=== PATIENT | female | born 1950 | race Caucasian/White ===

== ENCOUNTER 2018-02-02 14:08 | Outpatient (REF) | payer MEDICARE, OTHER, SELFPAY ==
[2018-02-03 12:47] LABS: Helicobacter pylori Ag, Feces Positive (NEGAT)
== END 2018-02-02 14:28 ==
LOC: LBN 14:08
PROVIDERS: PCP Nurse Practitioner; Visit Provider Nurse Practitioner
DX: R11.2 Nausea with vomiting, unspecified (principal)
CPT/HCPCS: 87338

== ENCOUNTER 2018-02-03 11:05 | Outpatient (CLI) | payer MEDICARE, OTHER, SELFPAY ==
[2018-02-03 11:53] LABS: HGB 13.8 g/dL (12.0-15.5); Mean Corp. HGB Concentration 33.7 g/dL (32.0-36.0); Mean Corpuscular Hemoglobin 29.8 pg (27.0-33.0); Mean Corpuscular Volume 88.6 fL (80-95); Mean Platelet Volume 8.9 fL (8.0-11.0); Platelet Count 302 x1000/uL (130-400); RBC 4.63 m/cumm (4.00-5.20); RBC Distribution Width 13.1 % (11.7-14.6); White Blood Cell Count 5.74 k/cumm (4.4-10.8)
[2018-02-03 13:10] LABS: ALT 39 U/L (12-78); AST 23 U/L (15-37); Albumin 3.8 g/dL (3.4-5.0); Alkaline Phosphatase 85 U/L (46-116); Anion Gap 9.1 mmol/L (3-11); BUN 15 mg/dL (7-18); Bilirubin, Total 0.4 mg/dL (0.2-1.0); CO2 25.9 mmol/L (21.0-32.0); CREATININE 0.74 mg/dL (0.55-1.02); Calcium 9.7 mg/dL (8.5-10.1); Chloride 102 mmol/L (98-107); Glucose 94 mg/dL (70-100); Potassium 3.9 mmol/L (3.5-5.1); Sodium 137 mmol/L (136-145); Total Protein 6.7 g/dL (6.4-8.2)
== END 2018-02-03 11:25 ==
PROVIDERS: PCP Nurse Practitioner; Visit Provider Nurse Practitioner
DX: R11.2 Nausea with vomiting, unspecified (principal)
CPT/HCPCS: 36415; 80053; 85027

== ENCOUNTER 2018-06-04 07:35 | Outpatient (CLI) | payer MEDICARE, OTHER, SELFPAY ==
[2018-06-04 10:05] LABS: Cholesterol 184 mg/dL (50-200); HDL Cholesterol 62 mg/dL (40-60); LDL CHOLESTEROL 102 mg/dL (<100); Triglyceride 97 mg/dL (30-150)
[2018-06-09 15:25] LABS: Helicobacter pylori Ag, Feces Negative (NEGAT)
== END 2018-06-04 07:55 ==
LOC: LBO 08:49 → LBN 14:06
PROVIDERS: Nurse Practitioner Family; PCP Nurse Practitioner; Visit Provider Nurse Practitioner
DX: E78.5 Hyperlipidemia, unspecified (principal); A04.8 Other specified bacterial intestinal infections
CPT/HCPCS: 36415; 80053; 80061; 83721; 87338; 83735; 85025

== ENCOUNTER 2019-04-29 03:11 | Outpatient (CLI) | payer MEDICARE, OTHER, SELFPAY ==
[2019-04-29 08:49] LABS: ALT 38 U/L (14-59); AST 22 U/L (15-37); Albumin 3.6 g/dL (3.4-5.0); Alkaline Phosphatase 77 U/L (46-116); Anion Gap 8.9 mmol/L (3-11); BUN 12 mg/dL (7-18); Bilirubin, Total 0.5 mg/dL (0.2-1.0); CO2 29.1 mmol/L (21.0-32.0); CREATININE 0.76 mg/dL (0.55-1.02); Calcium 9.8 mg/dL (8.5-10.1); Calculated LDL 103 mg/dL (<100); Chloride 103 mmol/L (98-107); Cholesterol 170 mg/dL (<200); Glucose 99 mg/dL (74-106); HDL Cholesterol 58 mg/dL (40-60); Potassium 3.9 mmol/L (3.5-5.1); Sodium 141 mmol/L (136-145); Total Protein 6.6 g/dL (6.4-8.2); Triglyceride 46 mg/dL (<150)
== END 2019-04-29 03:31 ==
PROVIDERS: PCP Nurse Practitioner; Visit Provider Nurse Practitioner
DX: E78.5 Hyperlipidemia, unspecified (principal); I10 Essential (primary) hypertension
CPT/HCPCS: 36415; 80053; 80061

== ENCOUNTER 2019-04-29 11:49 | Outpatient (REF) | payer MEDICARE, OTHER, SELFPAY ==
[2019-04-29 14:01] LABS: Bilirubin Negative (Negative); Blood Negative (Negative); Clarity Sl Cloudy (Clear); Glucose Negative (Negative); Ketones Negative (Negative); Leukocyte Esterase Small (Negative); Nitrite Positive (Negative); Specific Gravity 1.015 (1.005-1.025); Urobilinogen 0.2 EU/dL (Up TO 0.2)
[2019-04-29 14:11] LABS: Bacteria Many HPF (Negative); C & S Indicated? C&S Done As Ordered; Casts Negative LPF (Negative); Crystals Negative HPF (Negative); Epithelial Cells Few HPF (Negative); Mucus Negative (Negative); Other Cells Few Transitional (Negative); RBC 0-2 HPF (0-2); WBC 20-50 HPF (0-5)
== END 2019-04-29 12:09 ==
LOC: LBN 11:49
PROVIDERS: PCP Nurse Practitioner; Visit Provider Nurse Practitioner
DX: R82.90 Unspecified abnormal findings in urine (principal)
CPT/HCPCS: 87077; 81003; 81015; 87086; 87186

== ENCOUNTER 2019-07-09 12:15 | Outpatient (REF) | payer MEDICARE, OTHER, SELFPAY ==
[2019-07-09 15:57] LABS: Bilirubin Negative (Negative); Blood Small (Negative); Clarity Cloudy (Clear); Glucose Negative (Negative); Ketones Negative (Negative); Leukocyte Esterase Moderate (Negative); Nitrite Negative (Negative); Specific Gravity 1.015 (1.005-1.025); Urobilinogen 0.2 EU/dL (Up TO 0.2); pH 6.5 (5-8)
[2019-07-09 16:21] LABS: Epithelial Cells Rare HPF (Negative); RBC 0-2 HPF (0-2); WBC >50 HPF (0-5)
[2019-07-09 16:22] LABS: Bacteria Moderate HPF (Negative); C & S Indicated? Yes; Casts Negative LPF (Negative); Crystals Negative HPF (Negative); Mucus Negative (Negative)
== END 2019-07-09 12:35 ==
LOC: LBN 12:15
PROVIDERS: PCP Nurse Practitioner; Visit Provider Family Medicine
DX: R30.0 Dysuria (principal)
CPT/HCPCS: 87077; 81003; 81015; 87086

== ENCOUNTER 2019-07-16 02:00 | Outpatient (CLI) | payer MEDICARE, OTHER, SELFPAY ==
[2019-07-16 17:03] LABS: ESR 6 mm/hr (0-30)
== END 2019-07-16 02:20 ==
PROVIDERS: PCP Nurse Practitioner; Visit Provider Family Medicine
DX: R51 Headache (principal)
CPT/HCPCS: 36415; 85652

== ENCOUNTER → 2019-08-16 13:07 | Outpatient (BNVA) | payer MEDICARE, OTHER, SELFPAY | PROVIDERS: PCP Nurse Practitioner; Referring Provider Nurse Practitioner; Visit Provider Nurse Practitioner Adult Health | DX: R51 Headache (principal); I10 Essential (primary) hypertension | CPT/HCPCS: 99204; 99215 ==

== ENCOUNTER 2019-08-20 02:30 | Outpatient (CLI) | payer MEDICARE, OTHER, SELFPAY ==
--- NOTE | 2019-08-20 08:30 | DI.MRI_ITS ---
EXAM: MR BRAIN WO CLINICAL HISTORY: new daily headaches,R51. TECHNIQUE: Multiplanar multisequence MRI was performed. COMPARISON: No exams were available for comparison FINDINGS: MR examination of brain was performed according to the usual protocol. There is moderate generalized cerebral atrophy. There are multiple areas of abnormal signal in periventricular white matter and a lso in the elsa sparing the corpus callosum, the findings are consistent with microvascular ischemic changes. Diffusion-weighted imaging shows no evidence subacute or acute infarction. Susceptibility weighted imaging shows no evidence of intracranial hemorrhage. There is normal flow void in the eqntot-pz-Fxxllu vasculature. The orbital and temporal bone structu res appear intact as does the pituitary. IMPRESSION: No evidence of acute intracranial process. Diffuse white matter signal changes noted as described ab christinae. DATA REPOSITORY:
== END 2019-08-20 02:50 ==
PROVIDERS: PCP Nurse Practitioner; Visit Provider Nurse Practitioner Adult Health
DX: R51 Headache (principal); G31.9 Degenerative disease of nervous system, unspecified; R90.82 White matter disease, unspecified
CPT/HCPCS: 70551

== ENCOUNTER → 2019-09-27 08:47 | Outpatient (BNVA) | payer MEDICARE, OTHER, SELFPAY | PROVIDERS: PCP Nurse Practitioner; Referring Provider Nurse Practitioner; Visit Provider Nurse Practitioner Adult Health | DX: G44.52 New daily persistent headache (NDPH) (principal); I10 Essential (primary) hypertension | CPT/HCPCS: 99213 ==

== ENCOUNTER 2019-10-20 03:10 | Outpatient (CLI) | payer MEDICARE, OTHER, SELFPAY ==
--- NOTE | 2019-10-20 09:06 | DI.MAMMO_ITS ---
EXAM: MAMMO SCREENING CLINICAL HISTORY: screening,Z12.39 TECHNIQUE: Mammograms were interpreted according to the usual protocol including computer analysis w [employer] CAD system, tomosynthesis and C-view imaging. COMPARISON: FINDINGS: Breasts are of moderate density with fairly symmetrical distribution of fibroglandular tissue. No do minant mass or clumped microcalcification is identified in either breast. The current examination is compared with previous studies including April 2017 and there has been no gross interval change i n appearance in comparison with previous examinations. IMPRESSION: No specific evidence of malignancy at this time. Routine screening examinations are suggested at yea rly intervals in this age group according to the ACS ACR guidelines. BI-RADS Cat 1 - Negative Breast Density - Category B - Scattered areas of fibroglandular density
== END 2019-10-20 03:30 ==
PROVIDERS: PCP Nurse Practitioner; Visit Provider Nurse Practitioner
DX: Z12.31 Encounter for screening mammogram for malignant neoplasm of breast (principal); R92.2 Inconclusive mammogram
CPT/HCPCS: 77063; 77067

== ENCOUNTER 2019-10-28 10:55 | Outpatient (REF) | payer MEDICARE, OTHER, SELFPAY ==
[2019-10-29 11:35] LABS: Campylobacter PCR Negative (Negative); Salmonella PCR Negative (Negative); Shiga Toxin PCR Negative (Negative); Shigella/Enteroinvasive Ecoli Negative (Negative)
== END 2019-10-28 11:15 ==
LOC: LBN 10:55
PROVIDERS: PCP Nurse Practitioner; Visit Provider Nurse Practitioner
DX: R19.7 Diarrhea, unspecified (principal)
CPT/HCPCS: 87505

== ENCOUNTER 2020-05-17 01:05 | Outpatient (CLI) | payer MEDICARE, OTHER, SELFPAY ==
--- NOTE | 2020-05-17 08:15 | DI.RAD_ITS ---
EXAM: XR RIBS BI INCLUDE CHEST CLINICAL HISTORY: ? rib fx. Fell multiple times skiing,RT RIB PAIN, R07.81,R07.1,V00.321A TECHNIQUE: 2D digital imaging was performed. COMPARISON: CR LEFT RIBS TO INCLUDE CXR from 05/07/2016 FINDINGS: MEDIASTINUM: Normal. HEART: Normal. PULMONARY VASCULATURE: Normal. LUNGS: Clear. PLEURAL SPACE: No pleural effusion or pneumothorax. BONE:Normal. BILATERAL RIBS: Normal. No acute or healing rib fractures. OTHER FINDINGS:Normal. IMPRESSION: 1. No acute pulmonary findings. 2. No acute or healing rib fractures. DATA REPOSITORY: RADIATION DOSE DELIVERED:
== END 2020-05-17 01:25 ==
PROVIDERS: PCP Nurse Practitioner; Visit Provider Nurse Practitioner
DX: R07.1 Chest pain on breathing (principal); R07.81 Pleurodynia; V00.321A Fall from snow-skis, initial encounter
CPT/HCPCS: 71046; 71110

== ENCOUNTER 2020-11-14 03:38 | Outpatient (CLI) | payer MEDICARE, OTHER, SELFPAY ==
[2020-11-14 08:07] LABS: HCT 45.6 % (36.0-46.0); HGB 14.7 g/dL (11.2-15.7); MCH 27.9 pg (27.0-33.0); MCHC 32.2 % (32.0-36.0); MCV 86.7 fL (80-95); MPV 8.3 fL (8.0-11.0); Platelet Count 307 10^3/uL (130-400); RBC 5.26 10^6/uL (3.93-5.22); RDW 13.2 % (11.7-14.6)
[2020-11-14 09:41] LABS: ALT 35 U/L (14-59); AST 21 U/L (15-37); Albumin 3.9 g/dL (3.4-5.0); Alkaline Phosphatase 92 U/L (46-116); Anion Gap 8.6 mmol/L (3-11); BUN 12 mg/dL (7-18); Bilirubin, Total 0.4 mg/dL (0.2-1.0); CO2 29.4 mmol/L (21.0-32.0); CREATININE 0.7 mg/dL (0.55-1.02); Calcium 10.2 mg/dL (8.5-10.1); Calculated LDL 110 mg/dL (<100); Chloride 104 mmol/L (98-107); Cholesterol 189 mg/dL (<200); Glucose 96 mg/dL (74-106); HDL Cholesterol 62 mg/dL (40-60); Potassium 4.4 mmol/L (3.5-5.1); Sodium 142 mmol/L (136-145); Triglyceride 87 mg/dL (<150)
== END 2020-11-14 03:39 | disposition home or self-care (01) ==
LOC: LBO 03:38
PROVIDERS: PCP Nurse Practitioner; Visit Provider Nurse Practitioner
DX: I10 Essential (primary) hypertension (principal); E78.5 Hyperlipidemia, unspecified; F32.9 Major depressive disorder, single episode, unspecified
CPT/HCPCS: 36415; 80053; 80061; 85027

== ENCOUNTER 2020-11-15 01:48 | Outpatient (CLI) | payer MEDICARE, OTHER, SELFPAY ==
--- NOTE | 2020-11-15 06:45 | DI.RAD_ITS ---
Exam(s) XR HIP LT COMPLETE AP PELVIS EXAM: XR HIP LT COMPLETE AP PELVIS CLINICAL HISTORY: pain s/p fall,M25.552. TECHNIQUE: 2D digital imaging was performed. COMPARISON: No exams were available for comparison FINDINGS: BONES: No acute fracture is present. No bony destructive lesion is seen. JOINTS: No dislocation present. There are degenerative changes seen in the lumbosacral spine. SOFT TISSUE: Normal. IMPRESSION: No acute fracture or dislocation. DATA REPOSITORY: RADIATION DOSE DELIVERED:
== END 2020-11-15 02:08 ==
PROVIDERS: PCP Nurse Practitioner; Visit Provider Nurse Practitioner
DX: M25.552 Pain in left hip (principal)
CPT/HCPCS: 73502

== ENCOUNTER 2021-01-15 01:11 | Outpatient (CLI) | payer MEDICARE, OTHER, SELFPAY ==
--- NOTE | 2021-01-15 06:15 | DI.MAMMO_ITS ---
Exam(s) MAMMO SCREENING EXAM: MAMMO SCREENING CLINICAL HISTORY: screening.Z. TECHNIQUE: Bilateral full field digital CC and MLO mammographic images were obtained with 3D tomosyn thesis and utilizing computer aided detection (CAD). COMPARISON: Prior mammograms dating back to 2014, the most recent being October 2019. FINDINGS: There are no new spiculated masses nor malignant appearing microcalcification groups. Small benign-appearing microcalcification group located lateral of center in the left breast is again noted. There is no significant architectural distortion nor skin thickening-retraction. IMPRESSION: No radiographic evidence of malignancy. Stable benign findings. BI-RADS Category 2 - Benign Findings Breast Density - Category B - Scattered areas of fibroglandular density Breast density Category C or D implies that the patient has dense breast tissue. Dense breast tissue can make it harder to find cancer on a mammogram. Dense breast tissue is also associated with an incr eased risk of breast cancer. This information about the result of the mammogram report was provided to the patient to raise their awareness. Use this report when you speak with the patient about their risks for breast cancer, which includes their family history. At that time, you may recommend additional screening tests (Ultrasoun d or MRI) as these tests may add significant information. A negative radiographic report should not delay biopsy if a dominant or clinically suspicious mass is present. Up to ten percent of cancers are not identified on mammography. A negative report may reinforce clinical impression. Adenosis and dense breasts may obscure an underlying neoplasm. False positive reports average 6 to 10%. Patient will receive a letter notifying them of these results.
== END 2021-01-15 01:31 ==
PROVIDERS: PCP Nurse Practitioner; Visit Provider Nurse Practitioner
DX: Z12.31 Encounter for screening mammogram for malignant neoplasm of breast (principal); R92.0 Mammographic microcalcification found on diagnostic imaging of breast
CPT/HCPCS: 77063; 77067

== ENCOUNTER 2021-06-26 01:55 | Outpatient (CLI) | payer MEDICARE, OTHER, SELFPAY ==
[2021-06-26] MEDS: Breeza Beverage 473 ML BTL 950 ML PO (09:15)
[2021-06-26] MEDS: Omnipaque 350 MG/ML 50 ML BTL IJ (09:16)
[2021-06-26 09:17] LABS: Estimated GFR 54.97 (mL/min/1.73m2)
[2021-06-26] MEDS: Omnipaque 350 MG/ML 100 ML BTL IJ (10:28)
--- NOTE | 2021-06-26 10:30 | DI.CT_ITS ---
Exam(s) CT ABDOMEN PELVIS W EXAM: CT ABDOMEN PELVIS W CLINICAL HISTORY: pain, explosive diarrhea. About a year, R10.9, R19.7 TECHNIQUE: Imaging Protocol: Axial computed tomography images with coronal and sagittal reformatted images were created and reviewed CONTRAST MATERIAL: Intravenous: Omnipaque 350 Contrast volume:100 mL Oral: Yes COMPARISON: No exams were available for comparison FINDINGS: ABDOMEN: Lung Bases: Small hiatal hernia. Liver: Normal density. There are several tiny hypodensities scattered throughout the liver. They are too small for further characterization but likely reflect small cysts. Portal, Superior Mesenteric, and Splenic Veins: Unremarkable. Gallbladder and Biliary Tract: Status post cholecystectomy. No significant biliary ductal dilatation . Pancreas: Normal density, no abnormal calcifications or inflammatory process. Spleen: Normal. Adrenals: No masses seen. Kidneys: Normal size, contour and axis. No radiodense stones or obstructive uropathy. There are tiny hypodensities in the kidneys. They are too small for further characterization but likely reflect sma ll cysts. Abdominal Aorta: Abdominal portion non-dilated. Atherosclerosis. There is a vertical hypodense wall along the posterior aspect of the aorta at the level of the hiatus. The wall shows some calcificatio n. The section at outlined by this wall is continuous with the lumen of the abdominal aorta and may represent a prior dissection. Bowel: No obstruction or bowel wall thickening. No evidence of appendicitis. There is a moderate elvira unt of stool throughout the colon. There are few scattered diverticula but no evidence of acute dive rticulitis. Peritoneal Cavity: No ascites, collection or mesenteric inflammatory response. No free air. Lymph Nodes: Within normal limits. Bones: Within normal limits for the patient's age. There is grade 1 pseudo spondylolisthesis of L5 o n S1. No spondylolysis. Soft Tissues: Unremarkable. PELVIS: Bladder: Symmetric distention, no gross wall thickening. Reproductive Organs: There is a 4.9 x 7.3 cm right adnexal cyst. It appears to arise from the right ovary. The left ovary is unremarkable as is the uterus. Lymph Nodes: Within normal limits. Bones: Within normal limits for the patient's age. IMPRESSION: 1. 4.9 x 7.3 cm right adnexal cyst which appears to arise from the right ovary. Ultrasound and/or MR I is recommended for further evaluation in this presumed postmenopausal patient. 2. 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 3. Status post cholecystectomy. 4. Colonic diverticulosis, but no evidence of acute diverticulitis. 5. Moderate amount of retained stool throughout the colon. RADIATION DOSE DELIVERED: 831mGy.cm Total DLP DATA REPOSITORY: All CT scans at this facility are submitted to the National Radiology Data Registry (NRDR) Dose Index Registry (DIR) with the [employer] (ACR). RADIATION OPTIMIZATION: All CT scans at this facility use at least one of these dose optimization te chniques: automated exposure control; mA and/or kV adjustment per patient size (includes targeted exa ms where dose is matched to clinical indication); or iterative reconstruction.
== END 2021-06-26 02:15 ==
PROVIDERS: PCP Nurse Practitioner; Visit Provider Nurse Practitioner
DX: Z01.812 Encounter for preprocedural laboratory examination; R10.9 Unspecified abdominal pain; R19.7 Diarrhea, unspecified; K44.9 Diaphragmatic hernia without obstruction or gangrene; K76.89 Other specified diseases of liver; Z90.49 Acquired absence of other specified parts of digestive tract; N28.1 Cyst of kidney, acquired; N83.291 Other ovarian cyst, right side; K57.30 Diverticulosis of large intestine without perforation or abscess without bleeding; K59.00 Constipation, unspecified
CPT/HCPCS: 74177; 82565; J3490; Q9967

== ENCOUNTER → 2021-07-04 01:26 | Outpatient (CLI) | payer MEDICARE, OTHER, SELFPAY ==
--- NOTE | 2021-07-04 07:45 | DI.US_ITS ---
Exam(s) US PELVIS TRANSVAGINAL EXAM: US PELVIS TRANSVAGINAL CLINICAL HISTORY: ovarian mass on CT,rt,n83.8 TECHNIQUE: Ultrasound performed using standard protocol. COMPARISON: US LEFT BREAST ULTRASOUND {[id number]} from 07/17/2015 FINDINGS: Pelvic ultrasound was performed transabdominally and transvaginally. The uterus measures 4.0 x 4.0 x 3.8 cm. There is an apparent 16 millimeter in diameter lower uterine segment fibroid. Endometrial stripe is not well visualized. Right ovary is nonvisualized. Left ovary contains a 7 cm in diameter predominantly cystic mass with question of thickened wall and with also apparent focal wall thickening versus adherent debris. No p rior ultrasound available for comparison. No free fluid in the cul-de-sac. Limited scanning of the kidneys is unremarkable. IMPRESSION: Large left ovarian mass, predominantly cystic but with some indeterminate characteristics. Neoplasti c disease should be considered. Additional evaluation with pelvic MRI recommended. DATA REPOSITORY:
== END ==
PROVIDERS: PCP Nurse Practitioner; Visit Provider Nurse Practitioner
DX: N83.8 Other noninflammatory disorders of ovary, fallopian tube and broad ligament (principal); D25.9 Leiomyoma of uterus, unspecified; N83.292 Other ovarian cyst, left side
CPT/HCPCS: 76830; 76856

== ENCOUNTER → 2021-07-13 00:43 | Outpatient (CLI) | payer MEDICARE, OTHER, SELFPAY ==
--- NOTE | 2021-07-13 06:45 | DI.RAD_ITS ---
Exam(s) XR ABDOMEN FLAT UPRIGHT EXAM: 2D digital imaging was performed. CLINICAL HISTORY: No nl BM for weeks,CONSTIPATION,NAUSEA,VOMITING,DISTENSION,K59.00. COMPARISON: No exams were available for comparison TECHNIQUE: Supine and uprightSupine and Lateral views of the abdomen was performed. FINDINGS: BOWEL GAS PATTERN: Nondistended.No free air. Stool seen throughout the colon. No abnormal colonic d istension. CALCIFICATIONS: No radiopaque calcifications. OSSEOUS STRUCTURES: Scoliosis and degenerative changes in the spine.. OTHER FINDINGS: Cholecystectomy clips right upper quadrant. Lung bases clear. IMPRESSION: 1. Nonobstructive bowel gas pattern. Moderate quantity of stool. 2. No radiopaque calculi. 3. No free air. DATA REPOSITORY: RADIATION DOSE DELIVERED:
== END ==
PROVIDERS: PCP Nurse Practitioner; Visit Provider Nurse Practitioner
DX: K59.00 Constipation, unspecified (principal); R11.2 Nausea with vomiting, unspecified; R14.0 Abdominal distension (gaseous)
CPT/HCPCS: 74019

== ENCOUNTER → 2021-07-19 02:28 | Outpatient (CLI) | payer MEDICARE, SELFPAY | PROVIDERS: PCP Nurse Practitioner; Visit Provider Nurse Practitioner ==

== ENCOUNTER → 2021-07-24 00:29 | Outpatient (CLI) | payer MEDICARE, OTHER, SELFPAY ==
--- NOTE | 2021-07-24 13:10 | DI.CT_ITS ---
Exam(s) CT CHEST WO EXAM: CT CHEST WO CLINICAL HISTORY: low dose protocol, not met criteria, FORMER SMOKER, Z87.891, SCREEN FOR CA. TECHNIQUE: Multi planar reconstructions were performed. CONTRAST MATERIAL: None COMPARISON: CR XR RIBS BI INCLUDE CHEST from 05/17/[address] ABDOMEN PELVIS W from 06/26/2021 FINDINGS: CHEST: LUNGS: There is scarring-atelectasis in the right middle lobe, as seen on prior chest x-ray. Also mi ld benign-appearing increased markings noted in the medial basal segment of the right lower lobe. In the opposite-left lung there is some scarring in the left lung base which is not associated with m ass nor pleural effusion. No significant findings in the left lower lobe, including the superior seg ment. In the medial aspect of the left upper just above the aortic arch there small area of infiltra te noted. No other significant focal findings in the upper lobe. Benign-appearing increased marking s noted in the superior lingular segment of the left lung. There are no pleural effusions on either side. There are no significant focal findings in the trache a and mainstem bronchi. MEDIASTINUM: There is no obvious hilar nor mediastinal adenopathy. Visualized thyroid unremarkable.No obvious axillary adenopathy CARDIAC: Heart size upper normal. There is a small pericardial effusion. Maximum thickness anterior ly is 6 millimeters.Caliber of the thoracic aorta is within normal limits. VISUALIZED UPPER ABDOMEN:No adrenal masses. No splenomegaly. OSSEOUS: No significant osseous lesions.. IMPRESSION: 1. Bilateral lung findings which are probably benign. Recommend follow-up CT scan in 6 months. 2. No pleural effusions nor intrathoracic adenopathy 3. Small pericardial effusion noted. Maximum thickness is 6-7 millimeters, anteriorly. Lung rads category: 3-probably benign. Short-term interval follow-up recommended in 6 months, with r epeat CT scan in 6 months. RADIATION DOSE DELIVERED: 73.86mGy.cm Total DLP DATA REPOSITORY: All CT scans at this facility are submitted to the National Radiology Data Registry (NRDR) Dose Index Registry (DIR) with the [employer] (ACR). RADIATION OPTIMIZATION: All CT scans at this facility use at least one of these dose optimization te chniques: automated exposure control; mA and/or kV adjustment per patient size (includes targeted exa ms where dose is matched to clinical indication); or iterative reconstruction.
== END ==
PROVIDERS: PCP Nurse Practitioner; Visit Provider Nurse Practitioner
DX: Z87.891 Personal history of nicotine dependence (principal); Z12.2 Encounter for screening for malignant neoplasm of respiratory organs; I31.3 Pericardial effusion (noninflammatory)
CPT/HCPCS: 71250

== ENCOUNTER → 2021-07-30 09:29 | Outpatient (BNVA) | payer MEDICARE, OTHER, SELFPAY | PROVIDERS: PCP Nurse Practitioner; Referring Provider Nurse Practitioner; Visit Provider Surgery | DX: R19.4 Change in bowel habit; R63.4 Abnormal weight loss | CPT/HCPCS: 99215; 99243 ==

== ENCOUNTER 2021-08-03 10:54 | Day surgery (SDC) | payer MEDICARE, OTHER, SELFPAY ==
--- NOTE | 2021-08-02 12:46 | PDOC.DSDIS_ITS ---
Discharge Plan Disposition Patient Disposition: HOME Condition: Good Discharge Details Reason For Visit: colon scope Attending Provider: Tiny Campbell Primary Care Provider: Verónica Mejia Home Meds and New Rx's Prescriptions: New hyoscyamine sulfate [Levsin] 0.125 mg tablet 0.125 mg PO QID PRN PRNQty: 30 0RF Continued riboflavin (vitamin B2) 25 mg tablet 25 mg PO DAILY vitamin B complex 1 EACH capsule 1 ea PO DAILY calcium citrate malate-vit D3 1 EACH tablet 1 ea PO DAILY Fish Oil 1 EACH capsule 1 ea PO BID glucosam-chond zw-byylbo-wq ac 1 EACH capsule 2 ea PO DAILY turmeric root extract 500 mg capsule 500 mg PO BID atorvastatin 10 mg tablet 10 mg PO DAILY Qty: 90 3RF amlodipine 5 mg tablet 5 mg PO DAILY Qty: 90 3RF fluoxetine [Prozac] 20 mg capsule 60 mg PO DAILY Qty: 270 3RF Rx Instructions: take three tabs daily to total 60 mg daily Discharge Instructions Additional Instructions: DSU Colonoscopy Post- Op Instructions Instructions for Everyone who is given Anesthesia: For your safety, please do the following for the next twenty-four (24) hours: *Do Not operate a motor vehicle (car, truck, motorcycle, etc.) *Do Not drink alcoholic beverages or use any recreational drugs for the first 24 hours or while taking pain medications. The medications in your body may have a reaction that can be dangerous. *Do Not make any important decisions or sign any important papers. Findings: polyp x1 right sided diverticula Follow up: My office will send a letter in 2 to 3 weeks time detailing what type of polyp it was and when we want you to repeat the colonoscopy, most likely 2-3 yrs -No ASA/NSAID's/Vit D /Fish oil for 10 days. tylenol is OK. push fluids up walking 10 minutes for every hour on the plane. -You may pass some blood with her first bowel movement for in 7 to 10 days. If you are passing clots or having more bleeding than a period, seek medical attention. 1. No lifting over 20 pounds or strenuous activity for the first 24 hours after your procedure. After 24 hours there are no restrictions on your activity but you may feel fatigued for a few days. 2. After you arrive home you may have a light meal and return to your normal diet as you can tolerate it without feeling sick to your stomach. 3. You may have a bloated, gaseous feeling in your belly (abdomen) after a colonoscopy. Passing gas and belching will help. Walking or lying down on your left side with your knees flexed may relieve the discomfort. Call the office at [phone] (Office) or [phone] (Hospital) right away if you notice any of the following: a.Vomiting of blood or ?coffee ground stools?. b.Rectal bleeding 1Tbsp, blood clots or continuous bleeding. c.Severe belly (abdominal) pain. d.A hard distended belly (abdomen) and an inability to pass gas. 4. Please don?t expect to have a normal BM (bowel movement) for 2-3 days after your procedure. 5. If there are questions regarding the findings of your procedure, please contact your doctor 6. If you are unable to contact your doctor with a problem, contact the hospital at [phone]. 7. Continue all your regular medications unless directed otherwise. I understand the above instructions and have no questions. Signature of Patient or Adult Escort Name of Responsible Adult Escort Signature of Nurse Date/Time Activity:: see above Diet:: see above Discharge Orders Discharge Orders: Discharge Order (Routine); Ordered 08/02/21 Ordered By: Tiny Campbell
--- NOTE | 2021-08-02 14:15 | W.COLOREPORT ---
Colonoscopy Report Date of procedure: 08/03/21 Pre-op diagnosis general: left ovarian mass/constipation&obstipation Post-op diagnosis procedure note: other (R sided diverticula/lg polyp/mild mass effect from ovarian cyst ) Surgeon: Tiny Campbell Anesthesia Type: General:No Airway Estimated blood loss (mL): 3 Pathology: other Complications: None Disposition: same day Prep: Miralax/Dulcolax Findings: 60 Procedure Description: After informed consent was obtained the patient was taken to the procedure room and placed in a left decubitous position. Monitors were applied and a time out was done. The patients name, date of , procedure, allergies to medications and metal in their body was reviewed. The patient was then sedated. Once sedated and comfortable a rectal exam was done. External exam was normal. Internal exam revealed a normal sphincter tone and no palpable masses. The scope was then introduced and retrofelexed. No internal hemorrhoids were identified. The scope was then advanced to the cecum w/out difficulty. The TI and appendiceal orifice were identified. The prep was BBPS 3 in all segments for a total of 9. The scope was then slowly retracted over 60 minutes back into the rectum. She has a 2cm polyp at 80cm. This is tattooed. It is removed with a hot snare. Has a long stalk and the defect is quite small and does not require clip. Minimal bleeding is noted. The specimen is retrieved. She has a few small scattered diverticula in the sigmoid colon. There is no signs of bleeding or infection. The scope was removed and the patient was woken up and taken back to Same day surgery in stable condition. The patient tolerated the procedure well and there were no immediate complications. Follow up: The patient should follow up in 1-3 years, path pending, or sooner if she notes any changes in her bowel habits, persistent bleeding, pain or difficulty moving her bowels, or unexplained weight loss.
[2021-08-03 11:12] VITALS: BP 112/72; PULSE 75; RESP 16; TEMP 36.5; O2SAT 99
--- NOTE | 2021-08-03 11:42 | W.ANESPRE ---
General Info Date of Service Date Performed: 08/03/21 Height: 5 ft 5 in Weight: 68.3 kg Body Mass Index (BMI): 25.0 Surgical Procedure: Operation Date: 08/03/21 13:20 Proposed Procedure Side Surgeon p Colonoscopy w/Biopsy Tiny Campbell, DO Meds Allergies and Home Medications Allergies Allergy/AdvReac Type Severity Reaction Status Date / Time penicillin G Allergy Intermediate rash Verified 08/03/21 11:09 Home Medication Medication Instructions Recorded calcium citrate malate 250 1 ea PO DAILY 06/06/15 mg-vitamin D3 2.5 mcg (100 unit) tablet npvsprralr-ilhtwwigqr-zgpsxzbr-hyalur 2 ea PO DAILY 06/06/15 ac 375 mg-300 mg-175 mg-2 mg cap omega-3 fatty acids-fish oil 340 1 ea PO BID 06/06/15 mg-1,000 mg capsule (Fish Oil) vitamin B complex 1 ea PO DAILY 06/06/15 turmeric root extract 500 mg 500 mg PO BID 08/16/19 capsule riboflavin (vitamin B2) 25 mg 25 mg PO DAILY 10/26/19 tablet amlodipine 5 mg tablet 5 mg PO DAILY #90 tab-caps 10/16/20 atorvastatin 10 mg tablet 10 mg PO DAILY #90 tabs 10/16/20 fluoxetine 20 mg capsule (Prozac) 60 mg PO DAILY #270 tab-caps 10/16/20 Current Visit Medications: Current Medications Generic Name Dose Route Start Last Admin Trade Name Freq PRN Reason Stop Dose Admin Hyoscyamine Sulfate 0.125 mg 08/02/21 12:45 Hyoscyamine 0.125 Mg Sl/Oral/Chew SL DIRECTED PRN Ringer's Solution 1,000 mls @ 80 mls/hr 08/03/21 06:00 IV 09/01/21 23:59 INFUSION DAVIS IV Miscellaneous Supplies 1 each 08/03/21 06:00 Iv Access IV 09/01/21 23:59 DIRECTED DAVIS Ondansetron HCl 4 mg 08/02/21 12:45 Ondansetron 4 Mg/2 Ml Vial IVP Q4H PRN PRN Nausea / Vomiting Sodium Chloride 0 ml 08/03/21 06:00 Normal Saline Flush 10 Ml Syr IV 09/01/21 23:59 PRN PRN Sodium Chloride 0 ml 08/03/21 06:00 Normal Saline 10 Ml Vial IJ 09/01/21 23:59 DIRECTED PRN Sterile Water 0 ml 08/03/21 06:00 Water,Injection,Sterile 10 Ml Vial IJ 09/01/21 23:59 DIRECTED PRN PFSH Active Problems Active Problems: Problem Status Onset Code Hiatal hernia K44.9 Diverticula of colon K57.30 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 Uterine fibroid ~06/2021 D25.9 Ovarian mass, left ~06/2021 N83.8 Left hip pain M25.552 Back pain M54.9 Neck pain M54.2 Muscle spasm M62.838 Painful respiratory movement R07.1 Fall from skis V00.321A Rib pain on right side R07.81 Loose stools R19.5 Sensorineural hearing loss of both ears H90.3 Encounter for hearing screening after failed hearing test Z01.110 Diarrhea R19.7 Anxiety F41.9 Osteopenia 09/15/15 M85.80 Frequent headaches R51 Dysuria R30.0 Abnormal urine odor R82.90 Skin lesion L98.9 Depression 12/14/14 F32.9 Hyperlipidemia 09/12/15 E78.5 Hypertension 12/14/14 I10 Hematuria 12/27/14 R31.9 Other chest pain 12/27/14 R07.89 Osteoarthritis 12/14/14 M19.90 Migraines 12/14/14 G43.909 Diverticulosis 09/21/15 K57.90 Medical History Medical History Comments:: Per pt. states her mother had profound dementia after anesthesia. Surgical History Surgical History Arthroplasty (09/26/16) Left knee unicompartment Dr. Barros Cholecystectomy Tobacco Smoking/Tobacco Use Status: Former Tobacco Use Alcohol Alcohol Intake: current Alcohol intake frequency: a few times a week Alcohol type: beer Substance Use Substance use: Rarely Substance use type: marijuana Vital Signs and Lab Results Vital Signs Most Recent Vital Signs in EMR: Most Recent Vital Signs Temp Pulse Resp BP Pulse Ox 36.5 C 75 16 112/72 99 08/03/21 11:12 08/03/21 11:12 08/03/21 11:12 08/03/21 11:12 08/03/21 11:12 Lab Results Blood Type / Crossmatch: No Data to Display Complete Blood Count: No Data to Display Complete Metabolic Panel: No Data to Display Liver Function Panel: No Data to Display Coagulation Panel: No Data to Display Cardiac Panel: No Data to Display Arterial Blood Gas: No Data to Display Venous Blood Gas: No Data to Display Pancreas Panel: No Data to Display Thyroid Panel: No Data to Display Infectious Disease: No Data to Display Blood Cultures: No Data to Display Toxicology Panel: No Data to Display Anesthesia Assessment and Plan Anesthesia History Personal History: No History of Anesthesia Complications Family History: No Family History of Anesthesia Complications Exercise Tolerance Exercise Tolerance: Metabolic Equivalents>4 Cardiac & Pulmonary Exam Cardiac Exam: Normal S1/S2 Heart Sounds Pulmonary Exam: Clear Bilateral Breath Sounds Implantable Cardiac Device Does patient have a Pacemaker or an ICD?: No Airway Exam Known Difficult Airway: No Mallampati Class: 1 Mouth Opening: Normal (> 3cm) Thyromental Distance: Greater than 3 cm Neck Range of Motion: Full ROM Neck Circumference: Normal Teeth Condition: Normal Dentition ASA Classification ASA Score: ASA 2 Emergency Case?: No NPO Status NPO Status: NPO Clears >2 hours, Solids >8 hours Anesthesia Plan Resuscitation Status: Full Code Anesthesia Technique: General Anesthesia Airway Planned: Natural Airway Monitors Used: Standard Monitors
[2021-08-03] MEDS: Lactated Ringers 1,000 ML 80 ML IV ×2 (11:47→13:45)
[2021-08-03 12:30] VITALS: BMI 25.0
--- NOTE | 2021-08-03 12:57 | BOWEL_PTH ---
PATIENT: Juliette Gilliland LOC: [facility] U#:[id number] AGE/SX: 70/F ROOM: RE08/03/[address]: Tiny Campbell : 1950 BED: DIS: 08/03/2021 SPEC #: [id number] RECD: 08/03/21 14:02 STATUS: ABHILASH RENiecy #: [id number] STARR: 08/03/21 12:[address]: Tiny Campbell DEPT: Surgical Specimen RECD BY: Yanira Garcia ENTERED: 08/03/21 14:02 SP TYPE: Bowel OTHR DR: Verónica Mejia APRN Tissues: 1 - BIOPSY BOWEL Procedures: GROSS AND MICRO LEVEL 4 Comments: [id number]
[2021-08-03] MEDS: Endoscopic Tattoo 5 ML SYR IJ (13:00)
[2021-08-03 13:50] VITALS: BP 128/58; PULSE 65; RESP 16; TEMP 36.3; O2SAT 100
[2021-08-03] MEDS: Hyoscyamine 0.125 MG SL/ORAL/CHEW SL ×2 (13:54→14:59)
[2021-08-03 14:23] VITALS: BP 116/83; PULSE 60; RESP 20; TEMP 36.2; O2SAT 99
--- NOTE | 2021-08-03 14:34 | W.ANESPOSTOP ---
Postoperative Evaluation Date, Time and Location Date Performed: 08/03/21 Time Performed: 13:34 Patient Location: Day Surgery Unit Vital Signs Most Recent Imported Vital Signs: Most Recent Vital Signs Temp Pulse Resp BP Pulse Ox 36.2 C L 60 20 116/83 99 08/03/21 14:23 08/03/21 14:23 08/03/21 14:23 08/03/21 14:23 08/03/21 14:23 Pain Score Most Recent Pain Score: Most Recent Pain Score Pain Level 5 08/03/21 14:23 Assessment Mental Status: Awake (Alert & Oriented to Patient Baseline) Airway and Respiratory Function: Patent airway with normal (patient baseline) respiratory exam Cardiovascular Function: Hemodynamically Stable Hydration Status: Adequately Hydrated Nausea & Vomiting: No Nausea or Vomiting Pain: Pt. Denies Any Pain Peripheral Nerve Block: Patient did not receive a nerve block
--- NOTE | 2021-08-03 15:00 | NUR.NOTE ---
Up to BR. Cramping remains unchanged. Repeat dose of Levsin given with effect pending. Up in chair at present drinking karol isidro.Nursing Note:
== END 2021-08-03 15:30 | disposition home or self-care (01) ==
PROVIDERS: PCP Nurse Practitioner; Visit Provider Surgery
PROC: 0DJD8ZZ Inspection of Lower Intestinal Tract, Via Natural or Artificial Opening Endoscopic (ICD-10-PCS; CPT 45378; principal; 2021-08-03 13:15)
DX: K59.00 Constipation, unspecified (principal); K57.30 Diverticulosis of large intestine without perforation or abscess without bleeding; R63.4 Abnormal weight loss; K63.5 Polyp of colon; N83.202 Unspecified ovarian cyst, left side
CPT/HCPCS: 45385; 45381; 88305; J3490

== ENCOUNTER 2021-11-14 02:45 | Outpatient (CLI) | payer MEDICARE, OTHER, SELFPAY ==
[2021-11-15 11:03] LABS: Lyme Ab w Rflx to Lyme Confirm Negative (Negative)
[2021-11-17 23:58] LABS: Anaplasma phagocytophilum Negative (Negative); B. miyamotoi PCR Negative (Negative); Babesia divergens/MO-1 Negative (Negative); Babesia duncani Negative (Negative); Babesia microti Negative (Negative); Ehrlichia chaffeensis Negative (Negative); Ehrlichia ewingii/canis Negative (Negative); Ehrlichia muris eauclairensis Negative (Negative)
== END 2021-11-14 02:46 | disposition home or self-care (01) ==
LOC: LBO 02:45
PROVIDERS: PCP Nurse Practitioner; Visit Provider Nurse Practitioner Family
DX: S80.861D Insect bite (nonvenomous), right lower leg, subsequent encounter
CPT/HCPCS: 36415; 87798; 86618

== ENCOUNTER → 2021-11-15 15:25 | Outpatient (CLI) | payer MEDICARE, OTHER, SELFPAY ==
--- NOTE | 2021-11-15 15:05 | DI.CT_ITS ---
Exam(s) CT HEAD FACIAL WO EXAM: CT HEAD FACIAL WO CLINICAL HISTORY: Fall 11/11 BR striking face shower,LOC minutes,JAIME, DIZZINESS,LT ORBIT PAIN. TECHNIQUE: Imaging Protocol: Axial computed tomography images with coronal and sagittal reformatted images were created and reviewed COMPARISON: No exams were available for comparison FINDINGS: BRAIN: There are no skull fractures nor fluid in the visualized paranasal sinuses. There is no evidence of intracranial hemorrhage, mass effect, or shift of midline structures. There are no extra-axial fluid collections. The ventricles are not enlarged or shifted and there is no blo od within the ventricular system nor within the basal cisterns. There is moderate bilateral periventricular hypodensity consistent with chronic small vessel. MAXILLOFACIAL CT SCAN: There is no evidence of facial fractures nor fluid in the visualized paranasal sinuses. There is no evidence of orbital blowout fracture. Zygomatic arches are intact. No evidence of significant nasal bone fracture. IMPRESSION: No acute intracranial findings on this noninfused CT scan of the brain. No evidence of facial bone fractures nor orbital fractures. RADIATION DOSE DELIVERED: 1,209.74mGy.cm Total DLP DATA REPOSITORY: All CT scans at this facility are submitted to the National Radiology Data Registry (NRDR) Dose Index Registry (DIR) with the [employer] (ACR). RADIATION OPTIMIZATION: All CT scans at this facility use at least one of these dose optimization te chniques: automated exposure control; mA and/or kV adjustment per patient size (includes targeted exa ms where dose is matched to clinical indication); or iterative reconstruction.
== END ==
PROVIDERS: PCP Nurse Practitioner; Visit Provider Nurse Practitioner
DX: H57.12 Ocular pain, left eye (principal); R40.20 Unspecified coma; R42 Dizziness and giddiness; R51.9 Headache, unspecified; W19.XXXA Unspecified fall, initial encounter
CPT/HCPCS: 70450; 70486

== ENCOUNTER → 2022-02-13 02:40 | Outpatient (CLI) | payer MEDICARE, OTHER, SELFPAY ==
--- NOTE | 2022-02-13 08:00 | DI.CT_ITS ---
Exam(s) CT CHEST WO EXAM: CT CHEST WO CLINICAL HISTORY: 6 mos f/u ABNL low dose lung cancer screening,R91.8. TECHNIQUE: Multi planar reconstructions were performed. CONTRAST MATERIAL: None COMPARISON: CT CT CHEST WO from 07/24/2021 FINDINGS: CHEST: LUNGS: Previously described benign-appearing findings in both lung hernandez are stable and unchanged fr om 07/24/2021 LDCT study again noted is some atelectasis in the right middle lobe and mild benign-swathi earing increased markings in the medial basal segment of the right lower lobe adjacent to an osteophy te off the anterolateral aspect of the thoracic vertebral body. Some scarring in the left lung base is noted as is some mild benign-appearing increased markings in left upper lobe just above the aortic arch. No new focal findings nor increase in size of the other findings. No pleural effusions. MEDIASTINUM: There is no obvious hilar nor mediastinal adenopathy. Visualized thyroid unremarkable.No obvious axillary adenopathy CARDIAC: Heart size is normal. Small pericardial effusion is again noted. Caliber thoracic aorta is within normal limits. VISUALIZED UPPER ABDOMEN:Gallbladder surgically absent. No adrenal masses. No splenomegaly. OSSEOUS: No significant osseous lesions.. IMPRESSION: 1. Stable appearance of the previously described bilateral benign-appearing lung findings, as describ ed on the LD CT study of July 2021. 2. No pleural effusions and no new intrathoracic adenopathy. 3. Small pericardial effusion again noted. Maximum thickness 6-7 millimeters. Recommend keeping this patient on yearly LDCT study. RADIATION DOSE DELIVERED: 543.38mGy.cm Total DLP DATA REPOSITORY: All CT scans at this facility are submitted to the National Radiology Data Registry (NRDR) Dose Index Registry (DIR) with the [employer] (ACR). RADIATION OPTIMIZATION: All CT scans at this facility use at least one of these dose optimization te chniques: automated exposure control; mA and/or kV adjustment per patient size (includes targeted exa ms where dose is matched to clinical indication); or iterative reconstruction.
== END ==
PROVIDERS: PCP Nurse Practitioner; Visit Provider Nurse Practitioner
DX: R91.8 Other nonspecific abnormal finding of lung field (principal); I31.39 Other pericardial effusion (noninflammatory); J98.11 Atelectasis; J98.4 Other disorders of lung
CPT/HCPCS: 71250

== ENCOUNTER 2022-03-05 14:15 | Outpatient (CLI) | payer MEDICARE, OTHER, SELFPAY ==
--- NOTE | 2022-03-05 14:15 | RT.EKG_ITS ---
APPROVED REPORT Exam: Resting ECG Reason for Exam: chest pressure, ? muscular Patient Location: O HR:58 bpm ECG Measurements Heart Rate 58 AXIS WV 157 P 50 QRSd 89 QRS 0 QT 430 T 65 QTc 423 Conclusion Sinus rhythm...normal P axis, V-rate 50- 99
== END 2022-03-05 14:16 | disposition home or self-care (01) ==
LOC: DI.KIM 14:16
PROVIDERS: PCP Nurse Practitioner; Visit Provider Nurse Practitioner
DX: R07.89 Other chest pain (principal); I10 Essential (primary) hypertension; E78.5 Hyperlipidemia, unspecified
CPT/HCPCS: 93010

== ENCOUNTER 2022-03-14 02:27 | Outpatient (CLI) | payer MEDICARE, OTHER, SELFPAY ==
[2022-03-14 10:07] LABS: ALT 26 U/L (14-59); AST 21 U/L (15-37); Albumin 3.8 g/dL (3.4-5.0); Alkaline Phosphatase 79 U/L (46-116); Anion Gap 4.4 mmol/L (3-11); BUN 16 mg/dL (7-18); Bilirubin, Total 0.3 mg/dL (0.2-1.0); CO2 29.6 mmol/L (21.0-32.0); CREATININE 0.8 mg/dL (0.55-1.02); Calcium 10.1 mg/dL (8.5-10.1); Calculated LDL 107 mg/dL (<100); Chloride 106 mmol/L (98-107); Cholesterol 191 mg/dL (<200); Estimated GFR 79.22 (mL/min/1.73m2); Glucose 100 mg/dL (74-106); HDL Cholesterol 75 mg/dL (40-60); Potassium 3.8 mmol/L (3.5-5.1); Sodium 140 mmol/L (136-145); Total Protein 7.2 g/dL (6.4-8.2); Triglyceride 46 mg/dL (<150)
== END 2022-03-14 02:28 | disposition home or self-care (01) ==
LOC: LBO 02:27
PROVIDERS: PCP Nurse Practitioner; Visit Provider Nurse Practitioner
DX: E78.5 Hyperlipidemia, unspecified (principal); I10 Essential (primary) hypertension; I71.41 Pararenal abdominal aortic aneurysm, without rupture
CPT/HCPCS: 36415; 80053; 80061

== ENCOUNTER 2022-04-26 00:03 | Outpatient (CLI) | payer MEDICARE, OTHER, SELFPAY ==
--- NOTE | 2022-04-26 07:15 | DI.DEXA_ITS ---
Exam(s) XR DEXA BONE DENSITY W/WO EVANGELISTA EXAM: XR DEXA BONE DENSITY W/WO EVANGELISTA CLINICAL HISTORY: SCREENING FOR OSTEOPOROSIS IN POSTMENOPAUSAL WOMAN,Z78.0,OSTEOPENIA TECHNIQUE: COMPARISON: Comparison is 10/10/2015. FINDINGS: Lateral Spine Image: Unremarkable. No compression deformities identified. Left hip: Total T-Score: -2.2. This compares to -1.5 on the prior examination. Total Z-Score: -0.6 T- and Z-scores: Findings are consistent with osteopenia. Lumbar Spine: Total T-Score: -1.1. This compares to 0.9 on the prior examination. Total Z-Score: 1.1 T- and Z-scores: Findings are consistent with osteopenia. IMPRESSION: No evidence of osteoporosis.
== END 2022-04-26 00:23 ==
PROVIDERS: PCP Nurse Practitioner; Visit Provider Nurse Practitioner
DX: M85.89 Other specified disorders of bone density and structure, multiple sites (principal); Z78.0 Asymptomatic menopausal state; Z13.820 Encounter for screening for osteoporosis
CPT/HCPCS: 77080

== ENCOUNTER → 2022-04-29 09:02 | Outpatient (BNVA) | payer MEDICARE, OTHER, SELFPAY | PROVIDERS: PCP Nurse Practitioner; Referring Provider Nurse Practitioner; Visit Provider Surgery | DX: R11.2 Nausea with vomiting, unspecified (principal); Z80.0 Family history of malignant neoplasm of digestive organs | CPT/HCPCS: 99213 ==

== ENCOUNTER → 2022-12-04 18:14 | Outpatient (CLI) | payer MEDICARE, OTHER, SELFPAY ==
--- NOTE | 2022-12-04 13:45 | DI.CT_ITS ---
Exam(s) CT HEAD WO EXAM: CT HEAD WO CLINICAL HISTORY: fall on 12/01 with hitting head, bruise, no LOC W19.XXXA FALL R51.9 HEADACHE. TECHNIQUE: Imaging Protocol: Axial computed tomography images with coronal and sagittal reformatted images were created and reviewed COMPARISON: CT CT HEAD FACIAL WO from 11/15/2021 FINDINGS: Ventricles and Extra axial spaces: Normal in size and morphology for the patient's age. Hemorrhage: None. Cerebral parenchyma: No evidence of acute infarct or mass. Mild white matter changes consistent misa rovascular disease, unchanged. Midline shift: None. Brainstem/Cerebellum: Normal. Calvarium: Normal. Visualized Paranasal sinuses/Mastoids: Clear. Soft Tissues: Unremarkable. IMPRESSION: No acute intracranial process. RADIATION DOSE DELIVERED: 674.64mGy.cm Total DLP DATA REPOSITORY: All CT scans at this facility are submitted to the National Radiology Data Registry (NRDR) Dose Index Registry (DIR) with the [employer] (ACR). RADIATION OPTIMIZATION: All CT scans at this facility use at least one of these dose optimization te chniques: automated exposure control; mA and/or kV adjustment per patient size (includes targeted exa ms where dose is matched to clinical indication); or iterative reconstruction.
== END ==
PROVIDERS: PCP Nurse Practitioner; Visit Provider Nurse Practitioner
DX: R51.9 Headache, unspecified (principal); W19.XXXA Unspecified fall, initial encounter
CPT/HCPCS: 70450

== ENCOUNTER → 2023-04-14 13:09 | Outpatient (CLI) | payer MEDICARE, OTHER, SELFPAY ==
--- NOTE | 2023-04-14 12:25 | DI.RAD_ITS ---
Exam(s) XR KNEE RT 4V AP,LAT,GAIL,PAT EXAM: XR KNEE RT 4V AP,LAT,GAIL,PAT CLINICAL HISTORY: r/o avulsion s83.429A sprain ligament rt knee. TECHNIQUE: 2D digital imaging was performed of the right knee. Four views obtained. Merchant, AP, la teral and PA tunnel views were obtained. COMPARISON: CR RIGHT KNEE 3 VIEWS from 04/14/2015 FINDINGS: BONES: No acute fracture is present. No bony destructive lesion is seen. JOINTS: There is moderate narrowing of the lateral femoral tibial joint. There osteophyte seen at th e posterior patella. There is a small joint effusion. There is a small cortical defect of the poste rior patella which may represent an osteochondral injury. SOFT TISSUE: Vascular calcifications are present. IMPRESSION: 1. Defect seen on the lateral view in the posterior patella which may represent an osteochondral inju ry. 2. No other evidence of an acute fracture or dislocation. 3. Small joint effusion. 4. If there is concern for internal derangement, an MRI should be considered for further evaluation. DATA REPOSITORY: RADIATION DOSE DELIVERED:
== END ==
PROVIDERS: PCP Nurse Practitioner; Visit Provider Family Medicine
DX: S83.421A Sprain of lateral collateral ligament of right knee, initial encounter (principal); X58.XXXA Exposure to other specified factors, initial encounter
CPT/HCPCS: 73564

== ENCOUNTER → 2023-06-20 11:01 | Outpatient (BNVA) | payer MEDICARE, OTHER, SELFPAY | PROVIDERS: PCP Nurse Practitioner; Referring Provider Nurse Practitioner; Visit Provider Physical Therapy Assistant | DX: M79.5 Residual foreign body in soft tissue (principal) | CPT/HCPCS: 10120; 99213 ==

== ENCOUNTER → 2023-06-25 03:34 | Outpatient (CLI) | payer MEDICARE, OTHER, SELFPAY ==
--- NOTE | 2023-06-25 07:56 | DI.CT_ITS ---
Exam(s) CT CHEST WO EXAM: CT CHEST WO CLINICAL HISTORY: benign appearing abnormal chest CT,FORMER SMOKER, R93.89 TECHNIQUE: Imaging Protocol: Axial computed tomography images with coronal and sagittal reformatted images were created and reviewed CONTRAST MATERIAL: Intravenous: Omnipaque 350 Contrast volume:structured data ml. COMPARISON: CT CT CHEST WO from 02/13/2022 FINDINGS: Pulmonary parenchyma: No consolidation. No dominant measurable mass. The scarring again noted medi al right lower lobe. Minimal scarring left lung apex. Minimal right middle lobe scarring. Tracheobronchial tree: No bronchiectasis or mucous plugging. Mediastinum and Fidelina: No dominant adenopathy or fluid collection. Pleura: No effusion. No pneumothorax. Heart: The heart is not dilated. Moderate coronary artery calcifications are seen. The stable small anterior pericardial effusion versus pericardial thickening. Aorta: Thoracic aorta non-dilated. Mild to moderate atherosclerotic changes. Upper abdomen: No acute findings.. Status post cholecystectomy. Bones: Scoliosis and degenerative changes in the spine. Soft tissues: Unremarkable. IMPRESSION: No suspicious pulmonary abnormalities.No evidence of mass or pulmonary nodules. No infiltrates. [facility]. RADIATION DOSE DELIVERED: Total DLP DATA REPOSITORY: All CT scans at this facility are submitted to the National Radiology Data Registry (NRDR) Dose Index Registry (DIR) with the [employer] (ACR). RADIATION OPTIMIZATION: All CT scans at this facility use at least one of these dose optimization te chniques: automated exposure control; mA and/or kV adjustment per patient size (includes targeted exa ms where dose is matched to clinical indication); or iterative reconstruction.
== END ==
PROVIDERS: PCP Nurse Practitioner; Visit Provider Nurse Practitioner
DX: Z12.31 Encounter for screening mammogram for malignant neoplasm of breast (principal); R93.89 Abnormal findings on diagnostic imaging of other specified body structures; J98.4 Other disorders of lung; Z87.891 Personal history of nicotine dependence
CPT/HCPCS: 71250; 77063; 77067

== ENCOUNTER 2023-09-16 08:16 | Outpatient (REF) | payer MEDICARE, OTHER, SELFPAY ==
[2023-09-17 09:07] LABS: Bilirubin Negative (Negative); Blood Negative (Negative); Clarity Sl Cloudy (Clear); Glucose Negative (Negative); Ketones Negative (Negative); Leukocyte Esterase Negative (Negative); Nitrite Negative (Negative); Urobilinogen 0.2 mg/dL (Up to 0.2)
== END 2023-09-16 08:17 | disposition home or self-care (01) ==
LOC: LBN 08:16
PROVIDERS: PCP Nurse Practitioner; Visit Provider Nurse Practitioner
DX: R30.0 Dysuria (principal); N39.0 Urinary tract infection, site not specified; B95.2 Enterococcus as the cause of diseases classified elsewhere; I10 Essential (primary) hypertension
CPT/HCPCS: 87077; 81003; 87086; 87186

== ENCOUNTER 2023-09-17 08:22 | Outpatient (CLI) | payer MEDICARE, OTHER, SELFPAY ==
[2023-09-17 08:18] LABS: Abs Immature Grans 0.01 10^3/uL (0.0-0.06); Absolute Basophil Count 0.07 10^3/uL (0.0-0.2); Absolute Eosinophil Count 0.12 10^3/uL (0.0-0.7); Absolute Lymphocyte Count 1.57 10^3/uL (1.2-3.4); Absolute Monocyte Count 0.48 10^3/uL (0.1-0.8); Absolute Neutrophil Count 3.41 10^3/uL (1.2-6.7); Basophils % 1.2 %; Eosinophils % 2.1 %; HCT 44.8 % (36.0-46.0); HGB 14.9 g/dL (11.2-15.7); Immature Grans % 0.2 %; Lymphocytes % 27.7 %; MCH 29.3 pg (27.0-33.0); MCHC 33.3 % (32.0-36.0); MCV 88 fL (80-95); MPV 8.5 fL (8.0-11.0); Monocytes % 8.5 %; Neutrophils % 60.3 %; Platelet Count 256 10^3/uL (130-400); RBC 5.09 10^6/uL (3.93-5.22); RDW 12.6 % (11.7-14.6); RDW-SD 40.9 fL; WBC 5.66 10^3/uL (4.4-10.8)
[2023-09-17 08:59] LABS: ALT 29 U/L (14-59); AST 21 U/L (15-37); Albumin 3.7 g/dL (3.4-5.0); Alkaline Phosphatase 83 U/L (46-116); Anion Gap 5.9 mmol/L (3-11); BUN 13 mg/dL (7-18); Bilirubin, Total 0.38 mg/dL (0.2-1.0); CO2 30.1 mmol/L (21.0-32.0); CREATININE 0.9 mg/dL (0.55-1.02); Calcium 10.6 mg/dL (8.5-10.1); Calculated LDL 103 mg/dL (<100); Chloride 106 mmol/L (98-107); Cholesterol 183 mg/dL (<200); Estimated GFR 67.92 (mL/min/1.73m2); Glucose 100 mg/dL (74-106); HDL Cholesterol 68 mg/dL (40-60); Potassium 4.3 mmol/L (3.5-5.1); Sodium 142 mmol/L (136-145); TSH (W/Ref FT4) 1.38 uIU/mL (0.36-3.74); Total Protein 7.1 g/dL (6.4-8.2); Triglyceride 61 mg/dL (<150); Vitamin B12 694 pg/mL (193-986)
== END 2023-09-17 08:23 | disposition home or self-care (01) ==
LOC: LBO 08:27
PROVIDERS: PCP Nurse Practitioner; Visit Provider Nurse Practitioner
DX: J45.909 Unspecified asthma, uncomplicated (principal); E78.5 Hyperlipidemia, unspecified; I10 Essential (primary) hypertension; R41.840 Attention and concentration deficit
CPT/HCPCS: 36415; 80053; 80061; 82607; 84443; 85025

== ENCOUNTER 2024-01-26 11:14 | Emergency (ER) | payer MEDICARE, OTHER, SELFPAY ==
[2024-01-26] VITALS (15 sets, daily range): BP systolic 113–126; BP diastolic 57–79; PULSE 66–75; RESP 13–21; TEMP 36.5–36.7; O2SAT 97–99
--- NOTE | 2024-01-26 11:15 | RT.EKG_ITS ---
APPROVED REPORT Exam: Resting ECG Reason for Exam: weakness, shuffling gait Patient Location: E HR:74 bpm ECG Measurements Heart Rate 74 AXIS TN 152 P 23 QRSd 100 QRS -23 QT 418 T [id number] QTc 463 Conclusion Sinus rhythm 74 no stemi
--- NOTE | 2024-01-26 11:51 | W.ED.GENAD ---
Discharge Plan Disposition Patient Disposition: Home Condition: Stable Discharge Details Clinical Impression: Pneumonia, Weakness Primary Care Provider: Verónica Mejia ED Provider: Hilaria Machado Home Meds and New Rx's Prescriptions: New doxycycline hyclate 100 mg capsule 100 mg PO BID 5 Days Qty: 10 0RF No Action fluticasone propionate 50 mcg/actuation spray,suspension 2 spray intranasal DAILY Qty: 16 12RF Rx Instructions: administer into each nostril vitamin B complex 1 EACH capsule 1 ea PO DAILY calcium citrate malate-vit D3 1 EACH tablet 1 ea PO DAILY Fish Oil 1 EACH capsule 1 ea PO BID glucosam-chond oh-uykbql-fm ac 1 EACH capsule 2 ea PO DAILY fluoxetine 20 mg capsule See Rx Instructions .ROUTE .COMPLEX Qty: 270 3RF Dose Instruction: TAKE THREE CAPSULES BY MOUTH EVERY DAY Rx Instructions: TAKE THREE CAPSULES BY MOUTH EVERY DAY atorvastatin 10 mg tablet 10 mg PO DAILY Qty: 90 3RF amlodipine 5 mg tablet See Rx Instructions .ROUTE .COMPLEX Qty: 90 1RF Dose Instruction: TAKE ONE TABLET BY MOUTH EVERY DAY Rx Instructions: TAKE ONE TABLET BY MOUTH EVERY DAY Discharge Instructions Instructions: Community-Acquired Pneumonia, Adult (DC) Additional Instructions: Your chest x-ray shows pneumonia, otherwise lab work is unremarkable Your neuroexam and head CT are normal. No signs of a stroke. Your weakness is likely from your illness You were given a dose of antibiotics in the emergency department and the remaining prescription was sent to the pharmacy Make sure to drink plenty of fluids, you can take honey hot tea and lozenge to help with cough Return with any worsening of symptoms or not tolerating the medication HPI General Date/Time Provider Initiated Documentation: 01/26/24 11:38. Limitations to Documentation: no limitations. Information obtained by: patient. HPI Narrative: 73-year-old female with past medical history including urinary incontinence, hypertension, prior smoking history presents for evaluation of cough and lower extremity weakness. She reports that her cough is been ongoing for the last week. She reports that it has only been worsening. She states that she has a feeling of congestion, but is not having a productive cough. There have been subjective fevers but no measured fever. She reports that this weekend they took a short trip. She states that after that car ride, she had difficulty getting out of the car and standing. She just felt like her legs would not work. Since that time she has been ambulatory independently though she states that she feels generally weak and has been using the wall to help herself. There has been no focal weakness facial asymmetry or speech change noted Related Data Home Medications ?Medication ?Instructions ?Recorded ?Confirmed calcium 250 mg (as citrate 1 ea PO DAILY 06/06/15 01/26/24 malate)-vit D3 2.5 mcg (100 unit) tablet ufwjczygqn-qyuywxbila-gtwbglqu-hyalur 2 ea PO DAILY 06/06/15 01/26/24 ac 375 mg-300 mg-175 mg-2 mg cap omega-3 fatty acids-fish oil 340 1 ea PO BID 06/06/15 01/26/24 mg-1,000 mg capsule (Fish Oil) vitamin B complex 1 ea PO DAILY 06/06/15 01/26/24 fluoxetine 20 mg capsule See Rx Instructions .Route 07/07/23 01/26/24 .COMPLEX #270 caps fluticasone propionate 50 2 spray intranasal DAILY #16 grams 09/16/23 01/26/24 mcg/actuation nasal spray,suspension atorvastatin 10 mg tablet 10 mg PO DAILY #90 tabs 09/28/23 01/26/24 amlodipine 5 mg tablet See Rx Instructions .Route 01/06/24 01/26/24 .COMPLEX #90 tabs doxycycline hyclate 100 mg capsule 100 mg PO BID 5 days #10 caps 01/26/24 Previous Rx's ?Medication ?Instructions ?Recorded fluoxetine 20 mg capsule See Rx Instructions .Route 07/07/23 .COMPLEX #270 caps fluticasone propionate 50 2 spray intranasal DAILY #16 grams 09/16/23 mcg/actuation nasal spray,suspension atorvastatin 10 mg tablet 10 mg PO DAILY #90 tabs 09/28/23 amlodipine 5 mg tablet See Rx Instructions .Route 01/06/24 .COMPLEX #90 tabs doxycycline hyclate 100 mg capsule 100 mg PO BID 5 days #10 caps 01/26/24 Allergies Allergy/AdvReac Type Severity Reaction Status Date / Time penicillin G Allergy Intermediate rash Verified 01/26/24 11:43 General Stated Complaint: Dizzy/Sync ELIOT: 3 Exam Narrative Exam Narrative: Review of Systems: All systems reviewed & are unremarkable except as noted in HPI and below Well-developed, no acute distress NCAT RRR Unlabored respiratory effort, coarse breath sounds, occasional expiratory wheeze Nondistended abdomen soft nontender Extremities w/o edema no focal neurologic deficits, 5 out of 5 strength bilateral lower extremities, normal nfas-zf-croi, no pronator drift, negative Romberg, able to ambulate without difficulty or ataxia or shuffling gait Appropriate mood and affect Course Vital Signs Vital signs: Vital Signs Temperature 36.7 C 01/26/24 11:29 Pulse 74 01/26/24 11:29 Respiratory Rate 15 01/26/24 11:29 Blood Pressure 113/59 L 01/26/24 11:29 Pulse Oximetry 97 01/26/24 11:29 Temperature 36.7 C 01/26/24 11:29 Pulse 74 01/26/24 11:29 Respiratory Rate 15 01/26/24 11:29 Respiratory Effort Normal, Non-Labored 01/26/24 11:40 Blood Pressure 113/59 L 01/26/24 11:29 Blood Pressure Position Sitting 01/26/24 11:29 Pulse Oximetry 97 01/26/24 11:29 Oxygen Delivery Method Room Air 01/26/24 11:29 Oxygen Flow Rate 0 01/26/24 11:29 Medical Decision Making Emergent evaluation of cough and weakness. Initial differential includes pneumonia, respiratory failure. In regard to her weakness, there is no objective weakness appreciated at this time. I doubt CVA or spinal cord emergency causing her lower extremity weakness on Friday. I suspect that there may have just been some muscle stiffness after several hours in the car. She is ambulating without a shuffling gait on my evaluation there is no focal neurodeficits. Will get CT imaging to evaluate for subacute stroke but I have a low suspicion of this. Will check lab work and get chest x-ray to evaluate her ongoing cough. EKG reviewed and independently interpreted: Sinus 74 normal axis no STEMI Lab work reviewed. No leukocytosis or anemia. Mild hypokalemia at 3.4. No elevation in BUN. BNP slightly elevated. Chest x-ray does reveal a pneumonia. She was given a dose of Rocephin and azithromycin in the emergency department. She will be discharged with doxycycline. Return precautions advised. Based on curb 65 score, the patient does not meet inpatient criteria for community-acquired pneumonia. Recommend close follow-up with PCP and ER return precautions discussed. Quality:SDOH Health Related Social Needs: No Data to Display PFSH All Active Problems (Updated 01/26/24 @ 13:13 by Hilaria Machado MD) Weakness (Acute) Pneumonia (Acute) Urinary incontinence (Acute) Retained foreign body of foot (Acute) Lateral collateral ligament sprain of knee (Acute) Vitreous degeneration, bilateral (Acute ~06/2022) 06/27/22 [facility] Combined form of age-related cataract, both eyes (Acute ~06/2022) 06/27/22 [facility] Atopic dermatitis of eyelid (Acute ~06/2022) 06/27/22 [facility] exam Family history of esophageal cancer (Acute) Pararenal abdominal aortic aneurysm, without rupture (Acute) 01/23/22 Vascular - F/U 6months Inflammatory polyps (Acute ~08/03/21) Hiatal hernia (Chronic) Diverticula of colon (Acute) Dissection of unspecified site of aorta (Acute) There is no active dissection. She saw vascular on 07/06. Repeat CEA in 6 months time. They have no concerns and she has no limitation on activity 12/11/22 F/U Vascular - monitor w interval CT Uterine fibroid (Acute ~06/2021) 07/04/21-US-16mm fibroid in lower uterine segment Ovarian mass, left (Acute ~06/2021) 07/04/21-US-7 cm-pelvic MRI recommended Left hip pain (Acute) Back pain (Acute) Neck pain (Acute) Muscle spasm (Acute) Painful respiratory movement (Acute) Fall from skis (Acute) Rib pain on right side (Acute) Loose stools (Acute) Sensorineural hearing loss of both ears (Acute) Encounter for hearing screening after failed hearing test (Acute) Diarrhea (Acute) Anxiety (Chronic) Osteopenia (Acute 09/15/15) 10/10/15 DXA: hip T-score = -1.5 --> WHO FRAX 8.7% major osteoporotic fx & 0.9% hip fx --> recommend continued calcium & vitamin D supplementation Frequent headaches (Acute) Dysuria (Acute) Abnormal urine odor (Acute) Skin lesion (Acute) Depression (Chronic 12/14/14) Hyperlipidemia (Acute 09/12/15) 08/2015 labwork: 10-year ASCVD risk = ~9% Moderate statin Hypertension (Chronic 12/14/14) Hematuria (Acute 12/27/14) Other chest pain (Acute 12/27/14) Osteoarthritis (Acute 12/14/14) primary osteoarthritis of left knee Migraines (Acute 12/14/14) Diverticulosis (Acute 09/21/15) Medical History Cystadenoma (~09/2021) 10/02/21 DH Note benign ovarian Surgical History Arthroplasty (09/26/16) Left knee unicompartment Dr. Barros Cholecystectomy History of colonoscopy with polypectomy (~08/03/21) Family History Mother Dementia Essential hypertension Cancer Father Heart disease Cancer Brother Cancer Social History Smoking/Tobacco Use Status: Former Tobacco Use Quit Date: 03/17/96 Smoking risk assessment performed?: Yes Alcohol Intake: current Alcohol Intake frequency: a few times a week Alcohol type: beer Drug use: Occasionally Substance use type: marijuana Adopted: No Household members: spouse Housing: house Number of Children: 2 Communication Needs: Corrective Lenses Do you need help understanding health information?: Rarely Pets and animals: Yes Pets and animals: cat(s) and dog(s) What is your relationship status?: How often do you talk on the phone with friends or family?: twice per week How often do you get together with friends or relatives?: twice per week Panel score (0-1 are the most socially isolated patients): 2 What type of physical activity do you participate in: regular exercise Duration: 30-45 minutes/day Frequency: 1-2 times per week Seatbelt use: always Water heater temp set <120 deg: Yes Working smoke detector in home: Yes Fire extinguisher in home: Yes Carbon monox detector in home: Yes Firearms in home: No Do you feel safe at home: Yes Do you feel safe in your relationship?: Yes Victim of physical abuse: No Victim of emotional abuse: No Victim of sexual abuse: No Female Reproductive History Menstrual Menopause type: natural PAWSS Have you Been Recently Intoxicated or Drunk Within the Last 30 days?: No Have you Ever Experienced Previous Episodes of Alcohol Withdrawal?: No Have you ever Experienced Withdrawal Seizures?: No Have you ever Experienced Delirium Tremens(DT)s?: No Have you ever undergone Alcohol Rehabilitation Treatment (i.e, inpt ot outpatient treatment programs)?: No Have you ever Experienced Blackouts?: No Have you ever Combined Alcohol with other Downers within the last 90 days?: No Have you ever Combined Alcohol with any other Substance of Abuse during the last 90 days?: No Positive Blood Alcohol level on Presentation? [PCS.BAL]: No Evidence of Increased Autonomic Activity (i.e. HR>120, tremor, sweating, agitation, nausea)?: No Result: 0
[2024-01-26 11:57] LABS: Abs Immature Grans 0.02 10^3/uL (0.0-0.06); Absolute Basophil Count 0.05 10^3/uL (0.0-0.2); Absolute Lymphocyte Count 1.07 10^3/uL (1.2-3.4); Absolute Neutrophil Count 5.51 10^3/uL (1.2-6.7); Basophils % 0.7 %; Eosinophils % 1.4 %; HCT 42.1 % (36.0-46.0); HGB 14.3 g/dL (11.2-15.7); Immature Grans % 0.3 %; Lymphocytes % 14.6 %; MCH 29.2 pg (27.0-33.0); MCV 86 fL (80-95); MPV 8.4 fL (8.0-11.0); Monocytes % 8.2 %; Neutrophils % 74.8 %; Platelet Count 241 10^3/uL (130-400); RDW 12.9 % (11.7-14.6); RDW-SD 40.5 fL; WBC 7.35 10^3/uL (4.4-10.8)
--- NOTE | 2024-01-26 12:11 | DI.RAD_ITS ---
Exam(s) XR CHEST 2V PA LATERAL EXAM: XR CHEST 2V PA LATERAL CLINICAL HISTORY: cough TECHNIQUE: 2D digital imaging was performed. Two views. COMPARISON: CT CT CHEST WO from 06/25/2023 FINDINGS: HEART: Normal size. Aorta: Not dilated. PULMONARY VASCULATURE: Normal. MEDIASTINUM: Unremarkable. LUNGS: Large dense infiltrate noted in the lingula. The right lung appears clear. PLEURAL SPACE: No pleural effusion or pneumothorax. BONE:Unremarkable for age. SOFT TISSUES: Unremarkable. IMPRESSION: Lingular pneumonia. DATA REPOSITORY: RADIATION DOSE DELIVERED:
--- NOTE | 2024-01-26 12:11 | DI.CT_ITS ---
Exam(s) CT HEAD WO EXAM: CT HEAD WO CLINICAL HISTORY: weakness. TECHNIQUE: Imaging Protocol: Axial computed tomography images with coronal and sagittal reformatted images were created and reviewed COMPARISON: CT CT HEAD WO from 12/04/2022 FINDINGS: Ventricles and Extra axial spaces: Normal in size and morphology for the patient's age. Hemorrhage: None. Cerebral parenchyma: No evidence of acute infarct or mass. White matter changes of microvascular di sease. Midline shift: None. Brainstem/Cerebellum: Normal. Calvarium: Normal. Visualized Paranasal sinuses:Clear. Mastoids: Clear. Soft Tissues: Unremarkable. ORBITS: Unremarkable. PITUITARY: Not enlarged. IMPRESSION: No acute intracranial process. RADIATION DOSE DELIVERED: 896.7mGy.cm Total DLP DATA REPOSITORY: All CT scans at this facility are submitted to the National Radiology Data Registry (NRDR) Dose Index Registry (DIR) with the [employer] (ACR). RADIATION OPTIMIZATION: All CT scans at this facility use at least one of these dose optimization te chniques: automated exposure control; mA and/or kV adjustment per patient size (includes targeted exa ms where dose is matched to clinical indication); or iterative reconstruction.
[2024-01-26 12:19] LABS: ALT 23 U/L (14-59); AST 23 U/L (15-37); Albumin 3.2 g/dL (3.4-5.0); Alkaline Phosphatase 72 U/L (46-116); Anion Gap 5.6 mmol/L (3-11); BUN 13 mg/dL (7-18); Bilirubin, Total 0.54 mg/dL (0.2-1.0); CO2 30.4 mmol/L (21.0-32.0); CREATININE 0.9 mg/dL (0.55-1.02); Calcium 10.4 mg/dL (8.5-10.1); Chloride 103 mmol/L (98-107); Estimated GFR 67.92 (mL/min/1.73m2); Glucose 126 mg/dL (74-106); NT-proBNP 412 pg/mL (<300); Potassium 3.4 mmol/L (3.5-5.1); Sodium 139 mmol/L (136-145); Total Protein 7.1 g/dL (6.4-8.2)
[2024-01-26] MEDS: cefTRIAXone 1 GM/50 ML BAG IVPB (13:00)
[2024-01-26] MEDS: AZITHROMYCIN 500 MG in DEXTROSE 5%-WATER 250 ML 250 MG IVPB (13:02)
== END 2024-01-26 13:40 | disposition home or self-care (01) ==
PROVIDERS: Emergency Provider Emergency Medicine; PCP Nurse Practitioner
DX: J18.9 Pneumonia, unspecified organism (principal); R53.1 Weakness; I10 Essential (primary) hypertension
CPT/HCPCS: 36415; 80053; 93005; 96365; 96368; 99285; 70450; 71046; 83880; 85025; 93010; 99284; J0456; J0696

== ENCOUNTER → 2024-03-29 11:01 | Outpatient (BNVA) | payer MEDICARE, OTHER, SELFPAY | PROVIDERS: PCP Nurse Practitioner; Referring Provider Nurse Practitioner; Visit Provider Nurse Practitioner Gerontology | DX: R32 Unspecified urinary incontinence (principal); R33.9 Retention of urine, unspecified | CPT/HCPCS: 51798; 81003; 99215 ==

== ENCOUNTER 2024-04-07 13:55 | Emergency (ER) | payer MEDICARE, OTHER, SELFPAY ==
[2024-04-07] VITALS (67 sets, daily range): BP systolic 89–176; BP diastolic 50–148; PULSE 53–166; RESP 9–31; TEMP 36.6; O2SAT 94–100
--- NOTE | 2024-04-07 13:45 | RT.EKG_ITS ---
APPROVED REPORT Exam: Resting ECG Reason for Exam: chest pain Patient Location: E HR:147 bpm ECG Measurements Heart Rate 147 AXIS AZ [id number] P [id number] QRSd 78 QRS 5 QT 330 T 50 QTc 517 Conclusion Atrial flutter with predominant 2:1 AV block...A-rate 268, multiple Ps Repolarization abnormality, prob rate related...ST dep, T neg, tachycardia Prolonged QT interval...QTc >500mS
--- NOTE | 2024-04-07 14:15 | DI.CT_ITS ---
Exam(s) CT CHEST PE CTA EXAM: CT CHEST PE CTA CLINICAL HISTORY: chest pain and tachycardia. TECHNIQUE: Imaging Protocol: Axial CT angiography was performed with multi-slice acquisition and mu lti-planar reconstructions as well as axial, coronal and sagittal MIP reconstructions. Computer aided detection (CAD) was utilized. CONTRAST MATERIAL: Intravenous: Omnipaque 350 Contrast volume:70 ml COMPARISON: CT CT CHEST WO from 06/25/2023 FINDINGS: Pulmonary Arteries: No evidence of filling defect to suggest pulmonary emboli. Mediastinum and Fidelina: No dominant adenopathy or fluid collection. Pulmonary parenchyma: Expiratory changes. No consolidation or dominant measurable mass. Minimal sc arring. Pleura: No effusion or pneumothorax. Heart: The heart is mildly dilated. Moderate coronary artery calcifications are seen. Small pericar dial effusion seen at the left heart border. Aorta: Thoracic aorta non-dilated. No dissection. Upper abdomen: No acute findings. Bones: Scoliosis and degenerative changes. Tubes, Catheters, and Lines: None Soft tissues: Unremarkable. IMPRESSION: No evidence of pulmonary embolism or other acute abnormality.. RADIATION DOSE DELIVERED: Total DLP DATA REPOSITORY: All CT scans at this facility are submitted to the National Radiology Data Registry (NRDR) Dose Index Registry (DIR) with the [employer] (ACR). RADIATION OPTIMIZATION: All CT scans at this facility use at least one of these dose optimization te chniques: automated exposure control; mA and/or kV adjustment per patient size (includes targeted exa ms where dose is matched to clinical indication); or iterative reconstruction.
[2024-04-07] MEDS: dilTIAZem 25 MG/5 ML VIAL 20 MG IVP ×2 (14:17→14:53)
[2024-04-07 14:20] LABS: Abs Immature Grans 0.02 10^3/uL (0.0-0.06); Absolute Basophil Count 0.08 10^3/uL (0.0-0.2); Absolute Eosinophil Count 0.09 10^3/uL (0.0-0.7); Absolute Lymphocyte Count 2.39 10^3/uL (1.2-3.4); Absolute Monocyte Count 0.69 10^3/uL (0.1-0.8); Absolute Neutrophil Count 4.71 10^3/uL (1.2-6.7); Eosinophils % 1.1 %; HCT 47.5 % (36.0-46.0); HGB 16.1 g/dL (11.2-15.7); Immature Grans % 0.3 %; Lymphocytes % 29.9 %; MCH 29.3 pg (27.0-33.0); MCHC 33.9 % (32.0-36.0); MCV 86 fL (80-95); MPV 8.6 fL (8.0-11.0); Monocytes % 8.6 %; Neutrophils % 59.1 %; Platelet Count 291 10^3/uL (130-400); RDW 12.8 % (11.7-14.6); RDW-SD 40.4 fL; WBC 7.98 10^3/uL (4.4-10.8)
--- NOTE | 2024-04-07 14:23 | ED.GENADUL_ITS ---
Discharge Plan Disposition Patient Disposition: Home Condition: Stable Discharge Details Clinical Impression: Atrial fibrillation with RVR, Chest pain Primary Care Provider: Verónica Mejia ED Provider: John Olguin Home Meds and New Rx's Prescriptions: New Eliquis 5 mg tablet 5 mg PO BID Qty: 60 0RF metoprolol succinate 25 mg tablet extended release 24 hr 25 mg PO DAILY Qty: 30 0RF Continued fluticasone propionate 50 mcg/actuation spray,suspension 2 spray intranasal DAILY Qty: 16 12RF Rx Instructions: administer into each nostril vitamin B complex 1 EACH capsule 1 ea PO DAILY calcium citrate malate-vit D3 1 EACH tablet 1 ea PO DAILY Fish Oil 1 EACH capsule 1 ea PO BID glucosam-chond ek-fgghyo-ni ac 1 EACH capsule 2 ea PO DAILY fluoxetine 20 mg capsule See Rx Instructions .ROUTE .COMPLEX Qty: 270 3RF Dose Instruction: TAKE THREE CAPSULES BY MOUTH EVERY DAY Rx Instructions: TAKE THREE CAPSULES BY MOUTH EVERY DAY atorvastatin 10 mg tablet 10 mg PO DAILY Qty: 90 3RF amlodipine 5 mg tablet See Rx Instructions .ROUTE .COMPLEX Qty: 90 1RF Dose Instruction: TAKE ONE TABLET BY MOUTH EVERY DAY Rx Instructions: TAKE ONE TABLET BY MOUTH EVERY DAY Discharge Instructions Instructions: Atrial Fibrillation and Atrial Flutter ED Additional Instructions: You were found to be in atrial fibrillation with elevated heart rates. This was able to be controlled with medications. Atrial fibrillation places you at a higher risk for having stroke so it is recommended to be on anticoagulation. I sent a prescription for Eliquis or apixaban to the pharmacy if after your discussion with your primary care provider you choosing 1 of started. The metoprolol is to help control your heart rate if you do go into A-fib again. If you feel more ill, have severe worsening chest pain or difficulty breathing return to the emergency department for reevaluation HPI General Date/Time Provider Initiated Documentation: 04/07/24 13:57 . Limitations to Documentation: no limitations . Information obtained by: patient . History of Present Illness 73 year old F presents to the emergency department with the chief complaint of Chest pain, described as moderate, Quality is described as aching and constant, and is localized to the chest. Patient reports no radiation. and it has been constant. No relieving factors improve symptom(s), No exacerbating factors reported . Patient notes denies fever/chills and nausea/vomiting. Patient did receive the following treatments prior to arrival, none Related Data Home Medications ?Medication ?Instructions ?Recorded ?Confirmed calcium 250 mg (as citrate 1 ea PO DAILY 06/06/15 03/19/24 malate)-vit D3 2.5 mcg (100 unit) tablet ccuyfodung-dgzskrvqrk-auhqekpu-hyalur 2 ea PO DAILY 06/06/15 03/19/24 ac 375 mg-300 mg-175 mg-2 mg cap omega-3 fatty acids-fish oil 340 1 ea PO BID 06/06/15 03/19/24 mg-1,000 mg capsule (Fish Oil) vitamin B complex 1 ea PO DAILY 06/06/15 03/19/24 fluoxetine 20 mg capsule See Rx Instructions .Route 07/07/23 03/19/24 .COMPLEX #270 caps fluticasone propionate 50 2 spray intranasal DAILY #16 grams 09/16/23 03/19/24 mcg/actuation nasal spray,suspension atorvastatin 10 mg tablet 10 mg PO DAILY #90 tabs 09/28/23 03/19/24 amlodipine 5 mg tablet See Rx Instructions .Route 01/06/24 03/19/24 .COMPLEX #90 tabs apixaban 5 mg tablet (Eliquis) 5 mg PO BID afib #60 tabs 04/07/24 metoprolol succinate 25 mg 25 mg PO DAILY #30 tabs 04/07/24 tablet,extended release 24 hr Previous Rx's ?Medication ?Instructions ?Recorded fluoxetine 20 mg capsule See Rx Instructions .Route 07/07/23 .COMPLEX #270 caps fluticasone propionate 50 2 spray intranasal DAILY #16 grams 09/16/23 mcg/actuation nasal spray,suspension atorvastatin 10 mg tablet 10 mg PO DAILY #90 tabs 09/28/23 amlodipine 5 mg tablet See Rx Instructions .Route 01/06/24 .COMPLEX #90 tabs apixaban 5 mg tablet (Eliquis) 5 mg PO BID afib #60 tabs 04/07/24 metoprolol succinate 25 mg 25 mg PO DAILY #30 tabs 04/07/24 tablet,extended release 24 hr Allergies Allergy/AdvReac Type Severity Reaction Status Date / Time penicillin G Allergy Intermediate rash Verified 03/29/24 11:07 General Stated Complaint: Chest Pain ELIOT: 2 Review of Systems All systems reviewed & are unremarkable except as noted in HPI and below Constitutional Constitutional: Denies chills, Denies fever(s) and Denies weakness Cardiovascular Cardiovascular: Reports chest pain and Denies dyspnea Respiratory Respiratory: Denies cough and Denies dyspnea Gastrointestinal Gastrointestinal: Denies abdominal pain, Denies nausea and Denies vomiting Neurologic Neurologic: Denies weakness Exam Const General: anxious Orientation: alert [facility] Head: normal to inspection Ears: external ears normal General nose exam: external nose normal Mouth: moist mucous membranes Eyes General: appearance normal, both eyes and all related structures Neck Neck: normal visual inspection Resp Effort & Inspection: normal respiratory effort and able to speak in complete sentences Auscultation: clear to auscultation bilaterally Cardio Jugular venous pressure: no JVD Rate: tachycardic Heart Sounds: no murmurs GI Palpation: soft and nontender Skin General skin exam: no rashes or lesions noted Neuro General: patient alert and patient oriented x3 Extrem General: normal to inspection Psych Mental Status: mental status grossly normal Course Vital Signs Vital signs: Vital Signs Temperature 36.6 C 04/07/24 13:59 Pulse 150 H 04/07/24 13:59 Respiratory Rate 16 04/07/24 13:59 Blood Pressure 170/52 H 04/07/24 13:59 Pulse Oximetry 94 04/07/24 13:59 Temperature 36.6 C 04/07/24 13:59 Temperature Source Oral 04/07/24 13:59 Pulse 154 H 04/07/24 14:17 Respiratory Rate 16 04/07/24 13:59 Blood Pressure 152/101 H 04/07/24 14:17 Blood Pressure Position Supine 04/07/24 13:59 Pulse Oximetry 94 04/07/24 13:59 Oxygen Delivery Method Room Air 04/07/24 13:59 Oxygen Flow Rate 0 04/07/24 13:59 Pain Level 7 04/07/24 14:10 Lab/Test Results Lab/Test Results: Laboratory Tests Range/Units 04/07/24 14:12 WBC (4.4-10.8) 10^3/uL 7.98 RBC (3.93-5.22) 10^6/uL 5.50 H Hgb (11.2-15.7) g/dL 16.1 H Hct (36.0-46.0) % 47.5 H MCV (80-95) fL 86 MCH (27.0-33.0) pg 29.3 MCHC (32.0-36.0) % 33.9 RDW (11.7-14.6) % 12.8 Plt Count (130-400) 10^3/uL 291 MPV (8.0-11.0) fL 8.6 Immature Gran % % 0.3 Neutrophils % % 59.1 Lymphocytes % % 29.9 Monocytes % % 8.6 Eosinophils % % 1.1 Basophils % % 1.0 Nucleated RBC % (0.0-0.3) % 0.0 Absolute Neutrophils (1.2-6.7) 10^3/uL 4.71 Absolute Lymphocytes (1.2-3.4) 10^3/uL 2.39 Absolute Monocytes (0.1-0.8) 10^3/uL 0.69 Absolute Eosinophils (0.0-0.7) 10^3/uL 0.09 Absolute Basophils (0.0-0.2) 10^3/uL 0.08 Medical Decision Making 73-year-old female with no known cardiac history and no history of A-fib comes in with 1 hour of anterior chest pressure and aching sensation and feels her heart is beating fast. She has noted to be in A-fib with rates in the 140s to 160s on arrival. She is denying any shortness of breath, no fevers or vomiting. No radiation of pain or diaphoresis. She is speaking full sentences though does appear anxious. She has no JVD, no leg swelling or calf tenderness. I suspect her symptoms are due to her A-fib with RVR. Will treat with IV di ltiazem, check a CBC CMP and troponins. Given the tachycardia and chest pain I will also obtain a CTA to evaluate for PE. She has no tearing back pain and equal peripheral pulses so I doubt dissection. Patient's heart rate after 20 mg of IV diltiazem lowered to 1 20-1 30, will order additional 20 mg. She is still feeling very anxious and appears anxious so we will also give 0.5 mg of IV lorazepam. CT shows no PE or other concerning findings. Labs unremarkable including delta troponin, has a mildly low potassium. She is converted to sinus rhythm and has been in this rhythm for approximately an hour and is asymptomatic. We discussed observation admission versus discharge and PCP follow-up given she is in sinus rhythm now and plan for outpatient follow-up. I feel this is reasonable given the reassuring workup and now in sinus rhythm. We did discuss her CHADS2 Vascor is 3 so she should be anticoagulated. She is not sure if she wants to start this despite understand the risks of stroke. I will provide her prescription for Eliquis in case she chooses to start this after discussion with her primary care provider. Return precautions given Differential Diagnosis Differential Diagnosis: A-fib, NSTEMI, PE Lab Data Lab results reviewed: Yes I reviewed the patient's lab results. ECG Data Attestation: I personally reviewed and interpreted this ECG (s) as follows: Prior ECG tracings: available for review Interpretation: Atrial fibrillation, rate 147, no STEMI Second EKG shows sinus rhythm, rate of 66, AL 182, no STEMI Quality:SDOH Health Related Social Needs: No Data to Display Critical Care Time Critical Care Time Critical Care Time: Yes Total Critical Care Time: 60 (minutes) Attestation: Time spent on lab review, hemodynamic monitoring and frequent reassessments and administering IV diltiazem in a patient with A-fib with RVR with potential to deteriorate at any time. PFSH All Active Problems (Updated 04/07/24 @ 16:41 by John Olguin MD) Chest pain (Acute) Atrial fibrillation with RVR (Acute) Incomplete emptying of bladder (Acute) Urinary incontinence (Acute) Retained foreign body of foot (Acute) Lateral collateral ligament sprain of knee (Acute) Vitreous degeneration, bilateral (Acute ~06/2022) 06/27/22 [facility] Combined form of age-related cataract, both eyes (Acute ~06/2022) 06/27/22 [facility] Atopic dermatitis of eyelid (Acute ~06/2022) 06/27/22 [facility] exam Family history of esophageal cancer (Acute) Pararenal abdominal aortic aneurysm, without rupture (Acute) 01/23/22 Vascular - F/U 6months Inflammatory polyps (Acute ~08/03/21) Hiatal hernia (Chronic) Diverticula of colon (Acute) Dissection of unspecified site of aorta (Acute) There is no active dissection. She saw vascular on 07/06. Repeat CEA in 6 months time. They have no concerns and she has no limitation on activity 12/11/22 F/U Vascular - monitor w interval CT Uterine fibroid (Acute ~06/2021) 07/04/21-US-16mm fibroid in lower uterine segment Ovarian mass, left (Acute ~06/2021) 07/04/21-US-7 cm-pelvic MRI recommended Left hip pain (Acute) Back pain (Acute) Neck pain (Acute) Muscle spasm (Acute) Painful respiratory movement (Acute) Fall from skis (Acute) Rib pain on right side (Acute) Loose stools (Acute) Sensorineural hearing loss of both ears (Acute) Encounter for hearing screening after failed hearing test (Acute) Diarrhea (Acute) Anxiety (Chronic) Osteopenia (Acute 09/15/15) 10/10/15 DXA: hip T-score = -1.5 --> WHO FRAX 8.7% major osteoporotic fx & 0.9% hip fx --> recommend continued calcium & vitamin D supplementation Frequent headaches (Acute) Dysuria (Acute) Abnormal urine odor (Acute) Skin lesion (Acute) Depression (Chronic 12/14/14) Hyperlipidemia (Acute 09/12/15) 08/2015 labwork: 10-year ASCVD risk = ~9% Moderate statin Hypertension (Chronic 12/14/14) Hematuria (Acute 12/27/14) Other chest pain (Acute 12/27/14) Osteoarthritis (Acute 12/14/14) primary osteoarthritis of left knee Migraines (Acute 12/14/14) Diverticulosis (Acute 09/21/15) Medical History Cystadenoma (~09/2021) 10/02/21 DH Note benign ovarian Surgical History History of colonoscopy with polypectomy (~08/03/21) Cholecystectomy Arthroplasty (09/26/16) Left knee unicompartment Dr. Barros Family History Mother Dementia Essential hypertension Cancer Father Heart disease Cancer Brother Cancer Social History Smoking/Tobacco Use Status: Former Tobacco Use Quit Date: 03/17/96 Smoking risk assessment performed?: Yes Alcohol Intake: current Alcohol Intake frequency: a few times a week Alcohol type: beer Drug use: Occasionally Substance use type: marijuana Adopted: No Household members: spouse Housing: house Number of Children: 2 Communication Needs: Corrective Lenses Do you need help understanding health information?: Rarely Pets and animals: Yes Pets and animals: cat(s) and dog(s) What is your relationship status?: How often do you talk on the phone with friends or family?: twice per week How often do you get together with friends or relatives?: twice per week Panel score (0-1 are the most socially isolated patients): 2 What type of physical activity do you participate in: regular exercise Duration: 30-45 minutes/day Frequency: 1-2 times per week Seatbelt use: always Water heater temp set <120 deg: Yes Working smoke detector in home: Yes Fire extinguisher in home: Yes Carbon monox detector in home: Yes Firearms in home: No Do you feel safe at home: Yes Do you feel safe in your relationship?: Yes Victim of physical abuse: No Victim of emotional abuse: No Victim of sexual abuse: No Female Reproductive History Menstrual Menopause type: natural PAWSS Have you Been Recently Intoxicated or Drunk Within the Last 30 days?: No Have you Ever Experienced Previous Episodes of Alcohol Withdrawal?: No Have you ever Experienced Withdrawal Seizures?: No Have you ever Experienced Delirium Tremens(DT)s?: No Have you ever undergone Alcohol Rehabilitation Treatment (i.e, inpt ot outpatient treatment programs)?: No Have you ever Experienced Blackouts?: No Have you ever Combined Alcohol with other Downers within the last 90 days?: No Have you ever Combined Alcohol with any other Substance of Abuse during the last 90 days?: No Positive Blood Alcohol level on Presentation? [PCS.BAL]: No Evidence of Increased Autonomic Activity (i.e. HR>120, tremor, sweating, agitation, nausea)?: No Result: 0
[2024-04-07] MEDS: LORazepam 2 MG/ML VIAL 0.5 MG IVP (14:39)
[2024-04-07 14:48] LABS: ALT 27 U/L (14-59); AST 20 U/L (15-37); Albumin 3.4 g/dL (3.4-5.0); Alkaline Phosphatase 102 U/L (46-116); Anion Gap 7.4 mmol/L (3-11); BUN 11 mg/dL (7-18); Bilirubin, Total 0.48 mg/dL (0.2-1.0); CO2 29.6 mmol/L (21.0-32.0); Calcium 11.4 mg/dL (8.5-10.1); Chloride 106 mmol/L (98-107); Estimated GFR 59.86 (mL/min/1.73m2); Glucose 104 mg/dL (74-106); Magnesium 2.1 mg/dL (1.8-2.4); Potassium 3.1 mmol/L (3.5-5.1); Sodium 143 mmol/L (136-145); TSH (W/Ref FT4) 1.34 uIU/mL (0.36-3.74); Total Protein 7.4 g/dL (6.4-8.2); Troponin I 15 ng/L (<or=51)
[2024-04-07 14:57] LABS: Prothrombin Time 9.9 sec (9.1-11.1)
[2024-04-07] MEDS: Omnipaque 350 MG/ML 500 ML BTL-Imaging package IJ (15:05)
[2024-04-07] MEDS: Normal Saline - Diluent 50 ML VIAL IJ (15:09)
--- NOTE | 2024-04-07 15:30 | RT.EKG_ITS ---
APPROVED REPORT Exam: Resting ECG Reason for Exam: chest pain Patient Location: E HR:66 bpm ECG Measurements Heart Rate 66 AXIS LA 182 P 27 QRSd 84 QRS -12 QT 362 T 49 QTc 379 Conclusion Sinus rhythm...normal P axis, V-rate 60- 99
[2024-04-07 15:45] LABS: Troponin I 25 ng/L (<or=51)
[2024-04-07] MEDS: dilTIAZem 30 MG TAB 60 MG PO (15:47)
[2024-04-07] MEDS: Potassium Chloride 20 MEQ TABCR 40 MEQ PO (16:25)
== END 2024-04-07 17:15 | disposition home or self-care (01) ==
PROVIDERS: Emergency Provider Emergency Medicine; PCP Nurse Practitioner
DX: I48.91 Unspecified atrial fibrillation (principal); R07.9 Chest pain, unspecified; I10 Essential (primary) hypertension; E78.5 Hyperlipidemia, unspecified
CPT/HCPCS: 36415; 71275; 80053; 93005; 96374; 96375; 96376; 99285; 83735; 84443; 84484; 85025; 85610; 85730; 93010; J2060

== ENCOUNTER 2024-04-12 10:44 | Outpatient (CLI) | payer MEDICARE, OTHER, SELFPAY ==
--- NOTE | 2024-04-12 10:45 | RT.EKG_ITS ---
APPROVED REPORT Exam: Resting ECG Reason for Exam: Atrial Fib Patient Location: O HR:50 bpm ECG Measurements Heart Rate 50 AXIS WI 173 P 33 QRSd 92 QRS 6 QT 446 T 46 QTc 407 Conclusion Sinus rhythm...normal P axis, V-rate 50- 99 Baseline wander in lead(s) V5 Normal Electrocardiogram
== END 2024-04-12 10:45 | disposition home or self-care (01) ==
PROVIDERS: PCP Nurse Practitioner; Visit Provider Nurse Practitioner
DX: I48.91 Unspecified atrial fibrillation (principal); E87.6 Hypokalemia; E83.52 Hypercalcemia
CPT/HCPCS: 93010

== ENCOUNTER 2024-04-13 03:13 | Outpatient (CLI) | payer MEDICARE, OTHER, SELFPAY ==
[2024-04-13 15:17] LABS: BUN 14 mg/dL (7-18); Calcium 11.4 mg/dL (8.5-10.1); Chloride 105 mmol/L (98-107); Estimated GFR 59.86 (mL/min/1.73m2); Glucose 101 mg/dL (74-106); Potassium 4.1 mmol/L (3.5-5.1); Sodium 140 mmol/L (136-145); Vitamin D 25 Total 55.4 ng/mL (30-100)
[2024-04-13 21:26] LABS: Ionized Calcium 1.43 mmol/L (1.14-1.35)
== END 2024-04-13 03:14 | disposition home or self-care (01) ==
LOC: LBO 03:13
PROVIDERS: PCP Nurse Practitioner; Referring Provider Nurse Practitioner; Visit Provider Nurse Practitioner
DX: I48.91 Unspecified atrial fibrillation (principal); E87.6 Hypokalemia; E55.9 Vitamin D deficiency, unspecified
CPT/HCPCS: 36415; 80048; 82306; 82330

== ENCOUNTER 2024-04-14 09:51 | Outpatient (CLI) | payer MEDICARE, OTHER, SELFPAY ==
[2024-04-14 11:18] LABS: Calcium 11.3 mg/dL (8.5-10.1)
[2024-04-14 17:52] LABS: Parathyroid Hormone,Intact 110.6 pg/mL (19.0-88.0)
== END 2024-04-14 09:52 | disposition home or self-care (01) ==
LOC: LBO 09:51
PROVIDERS: PCP Nurse Practitioner; Visit Provider Nurse Practitioner
DX: E83.52 Hypercalcemia (principal)
CPT/HCPCS: 36415; 82310; 83970

== ENCOUNTER 2024-04-22 00:47 | Outpatient (CLI) | payer MEDICARE, OTHER, SELFPAY ==
--- NOTE | 2024-04-22 07:30 | DI.US_ITS ---
APPROVED REPORT EXAM: Comprehensive 2D, Doppler, and color-flow Echocardiogram Patient Location: Out-Patient Pharmacist'S Aide: Cory Turner RDCS (AE) Indications: New onset afib Other Information Study Quality: Fair. Technically limited study due to body habitus. Conclusion Normal left ventricular wall thickness and chamber size. Ejection fraction is 55%. Wall motion is n ormal Normal right ventricular size and function Both atria are normal in size There is no structural or hemodynamically significant valvular disease Wall motion Left Ventricle The left ventricle is normal size. The left ventricular systolic function is normal. The left ventric ular ejection fraction is within the normal range. There is normal left ventricular wall thickness. T here is normal LV segmental wall motion. There is no ventricular septal defect visualized. LVEF is 55 %. Right Ventricle The right ventricle is normal size. The right ventricular systolic function is normal. Atria The left atrium size is normal. The right atrium size is normal. The interatrial septum is intact wit h no evidence for an atrial septal defect. Aortic Valve The aortic valve is normal in structure. Aortic valve is trileaflet. There is no aortic valvular sten osis. No aortic regurgitation is present. Mitral Valve The mitral valve is normal in structure. No evidence of mitral valve stenosis. There is no mitral ricardo ve regurgitation noted. Tricuspid Valve The tricuspid valve is normal in structure. There is no tricuspid valve stenosis. Trace tricuspid reg urgitation. Unable to assess PA pressure. Pulmonic Valve The pulmonary valve is normal in structure. There is no pulmonic valvular stenosis. There is no pulmo daisy valvular regurgitation. Great Vessels The aortic root is normal in size. The ascending aorta is normal in size. IVC is normal in size and c ollapses >50% with inspiration. Pericardium There is no pericardial effusion. 2D Dimensions IVSD d PLAX 0.93 cm F: 0.6-1.0 Ao Root d 2.78 cm F: 2.7 - 3.3 LVPW d PLAX 0.90 cm F: 0.6 - 1.0 Ao Asc Diam d 3.21 cm F: 2.3 - 3.1 LVID d PLAX 4.71 cm F: 3.8 - 5.2 LVDs 3.31 cm F: 2.2 - 3.5 LV EF Teichholz 56.7 % FS 29.66 % LV EDV (Teich) 102.9 mL LV ESV (Teich) 44.6 mL Stroke Vol Index (Teich) 32.41 M-Mode TAPSE 2.11 cm (M/F) >1.7 Auto EF LV EDV A4C 74.4 mL LV EDV A2C 155.6 mL LV EDV BP 110.8 mL LV ESV A4C 35.4 mL LV ESV A2C 74.0 mL LV ESV BP 51.8 mL LVEF(%) A4C 52.4 % LVEF(%) A2C 52.4 % LVEF(%) BP 53.2 % LV SV A4C 39.0 ml LV SV A2C 81.6 ml LV SV BP 58.9 ml LV CO A4C 1.9 L/min LV CO A2C 4.1 L/min LV CO BP 3.0 L/min HR A4C 49.52 BPM HR A2C 50.64 BPM LV EDV Index (BP) LA Volume LA Length A4C 4.0 cm LA Length A2C LA Area A4C s 11.46 cm2 LA Area A2C s LA Vol A4C A-L 27.79 mL LA Vol A2C A-L LA Vol Biplane A-L LA Vol A4C MOD 27.1 mL LA Vol A2C MOD LA Vol BP MOD RA Volume RA Area A4C 9.2 cm2 RA ESV A4C (A-L) 17.2mL RA Vol/BSA A4C A-L RA Length A4C 4.2 cm RA ESV A4C (MOD) 16.8mL LV Diastology MV E' medial 0.061 (>0.07 m/s) MV E Vmax 0.57 (0.4-1.3 m/s) MV E/E' MED 9.36 (<14) MV A Vmax 0.60 (0.4-1.3 m/s) MV E' lateral 0.052 (>0.1 m/s) E/A Ratio 0.9 MV E/E' LAT 10.98 (<14) MV E' Average 0.057 m/s MV E/E'(average) 10.11 Aortic Valve AoV Vmax 0.75 m/s LVOT Vmax 0.65 m/s AoV Peak Grad 2.2 mmHg LVOT Peak Grad 1.7 mmHg AoV Area (Vmax) 2.27 cm2 LVOT VTI 0.157 m AoV VTI 0.191 m LVOT Mean Grad 0.9 mmHg AoV Mean Zachariah. 0.52 m/s LVOT SV 41.10 mL AoV Mean Grad 1.2 mmHg LVOT Diam s 1.80 cm AoV Area (VTI) 2.15 cm2 AV Regurg Peak Gr. 2.23 mmHg Velocity Ratio 0.87 Mitral Valve MV DT 125 (160-240 msec) Pulmonary Valve PV Vmax 0.65 (0.5-1.5 m/s) RVOT Vmax 0.62 m/s PV Peak Grad 1.7 mmHg RVOT Peak Gr. 1.5 mmHg PV Mean Zachariah 0.43 m/s RVOT VTI 0.159 m PV Mean Grad 0.9 mmHg RVOT Mean Gr. 0.9 mmHg
== END 2024-04-22 01:07 ==
LOC: DI 00:47
PROVIDERS: PCP Nurse Practitioner; Visit Provider Internal Medicine Cardiovascular Disease
DX: I48.91 Unspecified atrial fibrillation (principal); E87.6 Hypokalemia; E83.52 Hypercalcemia
CPT/HCPCS: 93306

== ENCOUNTER 2024-04-23 21:12 | Outpatient (REF) | payer MEDICARE, OTHER, SELFPAY ==
[2024-04-24 09:27] LABS: Calcium Urine 16.6 mg/dL (See Note); Calcium Urine 24 hr 382 mg/24hr (100-300); Timed Urine Volume 2300 mL
== END 2024-04-23 21:13 | disposition home or self-care (01) ==
LOC: LBN 21:12
PROVIDERS: PCP Nurse Practitioner; Visit Provider Nurse Practitioner
DX: R79.89 Other specified abnormal findings of blood chemistry (principal)
CPT/HCPCS: 81050; 82340

== ENCOUNTER 2024-06-21 02:03 | Outpatient (CLI) | payer MEDICARE, OTHER, SELFPAY ==
--- NOTE | 2024-06-21 06:45 | DI.MRI_ITS ---
Exam(s) MR BRAIN WO EXAM: MR BRAIN WO CLINICAL HISTORY: chronic headache, cognitive decline,r41.89,r51.9 TECHNIQUE: Multiplanar multisequence MRI of the brain was performed. COMPARISON: MR MR BRAIN WO from 08/20/[address] HEAD WO from 01/26/2024 FINDINGS: VENTRICLES AND EXTRA AXIAL SPACES: Normal in size and morphology for the patient's age. MIDLINE SHIFT: None. CEREBRAL PARENCHYMA: No focus of restricted diffusion to suggest acute infarct. No space-occupying le alber identified. Mild atrophy consistent with the patient's age. Moderate scattered foci of high sig nal in the white matter consistent with sequela of chronic microvascular disease. BRAINSTEM/CEREBELLUM: Normal. VISUALIZED PARANASAL SINUSES: Clear mucous retention at the floor of the left maxillary sinus. MASTOIDS:Clear. Vasculature: Normal flow void. PITUITARY GLAND: Unremarkable. ORBITS: Unremarkable. IMPRESSION: Atrophy and white matter changes of microvascular disease. No acute abnormality. DATA REPOSITORY:
== END 2024-06-21 02:23 ==
LOC: DI 02:03
PROVIDERS: PCP Nurse Practitioner; Visit Provider Nurse Practitioner
DX: R41.89 Other symptoms and signs involving cognitive functions and awareness (principal); R51.9 Headache, unspecified
CPT/HCPCS: 70551

== ENCOUNTER → 2024-06-28 10:22 | Outpatient (BNVA) | payer MEDICARE, OTHER, SELFPAY | PROVIDERS: PCP Nurse Practitioner; Referring Provider Nurse Practitioner; Visit Provider Nurse Practitioner Gerontology | DX: R32 Unspecified urinary incontinence (principal); R33.9 Retention of urine, unspecified; R39.9 Unspecified symptoms and signs involving the genitourinary system | CPT/HCPCS: 99213 ==

== ENCOUNTER 2024-08-04 02:53 | Outpatient (CLI) | payer MEDICARE, OTHER, SELFPAY ==
[2024-08-04 11:40] LABS: Calcium 10.5 mg/dL (8.5-10.1); Calculated LDL 85 mg/dL (<100); Cholesterol 163 mg/dL (<200); HDL Cholesterol 65 mg/dL (>or=50); Triglyceride 66 mg/dL (<150)
== END 2024-08-04 02:54 | disposition home or self-care (01) ==
PROVIDERS: PCP Nurse Practitioner; Referring Provider Family Medicine; Visit Provider Nurse Practitioner
DX: E78.5 Hyperlipidemia, unspecified (principal); I48.91 Unspecified atrial fibrillation; E87.6 Hypokalemia; E83.52 Hypercalcemia
CPT/HCPCS: 36415; 80061; 82310

== ENCOUNTER 2024-08-11 00:27 | Outpatient (CLI) | payer MEDICARE, OTHER, SELFPAY ==
--- NOTE | 2024-08-11 | DI.DEXA_ITS ---
Exam(s) XR DEXA BONE DENSITY W/WO EVANGELISTA EXAM: XR DEXA BONE DENSITY W/WO EVANGELISTA CLINICAL HISTORY: Primary hyperparathyroidism, E21.0 (high Ca 10.6 on 09/18/23 with high iCa TECHNIQUE: Hologic Horizon C densitometer analysis of left hip, lumbar spine and left forearm. Lat eral survey image of the thoracic and lumbar spine. COMPARISON: DX DEXA BONE DENSITY WITH EVANGELISTA from 10/10/2015 CR XR DEXA BONE DENSITY W/WO EVANGELISTA from 04/26/2022 FINDINGS: Lateral view of the thoracic and lumbar spine shows no evidence of compression fractures. Scoliosis and degenerative changes are present. Bone mineral density measurements of the lumbar spine correspond to a total T-score of -1.4, in the osteopenic range. This represents a 3.6 percent decrease from 2022 and 21.9 percent decrease from . Bone mineral density measurements of the left hip correspond to a total T-score of -2.3. This is no t significantly changed from 2022 represents a 13.3 percent decrease compared to 2015. The femoral n sherrell T-score is -2.8, in the osteoporotic range.. Theleft forearm bone mineral density measurements correspond to a T-score of the distal 3rd of -1.9, in the osteopenic range. This is not significantly changed from 2022 or represents a 10.3 percent i ncrease from 2015. IMPRESSION: Osteopenia of the hip and forearm. Osteoporosis of the spine.
== END 2024-08-11 00:47 ==
LOC: DI 00:27
PROVIDERS: PCP Nurse Practitioner; Visit Provider Internal Medicine Endocrinology, Diabetes & Metabolism
DX: E21.0 Primary hyperparathyroidism (principal); M85.89 Other specified disorders of bone density and structure, multiple sites
CPT/HCPCS: 77080

== ENCOUNTER 2024-09-21 16:10 | Outpatient (CLI) | payer MEDICARE, OTHER, SELFPAY ==
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
== END 2024-09-21 16:30 ==
LOC: DI 16:11
PROVIDERS: PCP Nurse Practitioner; Visit Provider Nurse Practitioner Family
DX: M25.552 Pain in left hip (principal); M53.3 Sacrococcygeal disorders, not elsewhere classified
CPT/HCPCS: 72220; 73502

== ENCOUNTER 2024-11-22 11:22 | Outpatient (CLI) | payer MEDICARE, OTHER, SELFPAY ==
--- NOTE | 2024-11-22 11:15 | RT.EKG_ITS ---
APPROVED REPORT Exam: Resting ECG Reason for Exam: Shaky, upper extremity tightness Patient Location: O HR:58 bpm ECG Measurements Heart Rate 58 AXIS OR 164 P 47 QRSd 88 QRS 0 QT 479 T 39 QTc 471 Conclusion Sinus rhythm...normal P axis, V-rate 50- 99 Normal Electrocardiogram
== END 2024-11-22 11:23 | disposition home or self-care (01) ==
LOC: DI.KIM 11:24
PROVIDERS: PCP Nurse Practitioner Family
DX: R20.8 Other disturbances of skin sensation (principal)
CPT/HCPCS: 93010

== ENCOUNTER 2024-12-07 09:45 | Outpatient (CLI) | payer MEDICARE, OTHER, SELFPAY ==
[2024-12-07 12:01] LABS: Calcium 8.9 mg/dL (8.5-10.1); TSH 0.81 uIU/mL (0.36-3.74)
== END 2024-12-07 09:46 | disposition home or self-care (01) ==
LOC: LBO 09:47
PROVIDERS: PCP Nurse Practitioner Family; Visit Provider Surgery
DX: E89.0 Postprocedural hypothyroidism (principal)
CPT/HCPCS: 36415; 82310; 83970; 84443

== ENCOUNTER → 2024-12-27 08:36 | Outpatient (BNVA) | payer MEDICARE, OTHER, SELFPAY | PROVIDERS: PCP Nurse Practitioner Family; Visit Provider Nurse Practitioner Gerontology | DX: N39.41 Urge incontinence (principal); R33.9 Retention of urine, unspecified; R39.9 Unspecified symptoms and signs involving the genitourinary system | CPT/HCPCS: 99213; 51798 ==

== ENCOUNTER 2024-12-27 10:02 | Outpatient (CLI) | payer MEDICARE, OTHER, SELFPAY ==
[2024-12-27 10:56] LABS: BUN 10 mg/dL (7-18); Estimated GFR 77.75 (mL/min/1.73m2)
== END 2024-12-27 10:03 | disposition home or self-care (01) ==
LOC: LBO 10:03
PROVIDERS: PCP Nurse Practitioner Family; Visit Provider Nurse Practitioner Gerontology
DX: R33.9 Retention of urine, unspecified (principal); R32 Unspecified urinary incontinence
CPT/HCPCS: 36415; 51798; 84520; 99213; 82565

== ENCOUNTER 2025-01-12 01:23 | Outpatient (CLI) | payer MEDICARE, OTHER, SELFPAY ==
--- NOTE | 2025-01-12 08:15 | DI.US_ITS ---
Exam(s) US RENAL EXAM: US RENAL CLINICAL HISTORY: incomplete emptying ? hydro R33.9 RETENTION URINE R32 INCONTINENCE. TECHNIQUE: Ragland scale, color and spectral Doppler were used. COMPARISON: CT CT ABDOMEN PELVIS W from 06/26/2021 FINDINGS: Renal size in cm: Right: 10.9. Left: 9.9. Echogenicity: Normal. Hydronephrosis: No. Cyst or mass: No. Nephrolithiasis: There is a 4 mm echogenic focus in the left kidney which may represent a nonobstructing stone. Other findings: None. Bladder:Normal. Ureteral jets: Right: Visualized and unremarkable. Left: Visualized and unremarkable. Prevoid vol:444 cc Postvoid vol:287 cc Renal color flow: Symmetric and within normal limits. IMPRESSION: 1. There is no evidence of hydronephrosis. 2. There is a large postvoid urinary bladder volume. DATA REPOSITORY:
== END 2025-01-12 01:43 ==
LOC: DI 01:23
PROVIDERS: PCP Nurse Practitioner Family; Visit Provider Nurse Practitioner Gerontology
DX: R33.9 Retention of urine, unspecified (principal); R32 Unspecified urinary incontinence
CPT/HCPCS: 76770

== ENCOUNTER → 2025-01-18 14:04 | Outpatient (BNVA) | payer MEDICARE, OTHER, SELFPAY | PROVIDERS: PCP Nurse Practitioner Family; Referring Provider Nurse Practitioner Family; Visit Provider Nurse Practitioner Gerontology | DX: N39.41 Urge incontinence (principal); R33.9 Retention of urine, unspecified | CPT/HCPCS: 99213 ==

== ENCOUNTER → 2025-02-03 10:06 | Outpatient (BNVA) | payer MEDICARE, OTHER, SELFPAY | PROVIDERS: PCP Nurse Practitioner Family; Referring Provider Nurse Practitioner Family; Visit Provider Surgery | DX: K21.9 Gastro-esophageal reflux disease without esophagitis (principal); R11.2 Nausea with vomiting, unspecified; Z80.0 Family history of malignant neoplasm of digestive organs | CPT/HCPCS: 99214 ==